=== PATIENT | female | born 1995 | race African-American/Black ===

== ENCOUNTER 2016-10-02 20:50 | Emergency (ER) | payer OTHER ==
[~2016-10-02] VITALS: Ht 160 cm; Wt 48.0 kg
[~2016-10-02 20:50] MED LIST: BENA25TA8 PO; ZOLO50TA PO
[2016-10-02 20:51] VITALS: BP 109/55; PULSE 113; RESP 16; TEMP 98.9; O2SAT 98
--- NOTE | 2016-10-02 21:12 | PD ---
HPI Chief Complaint: Abdominal Pain Time Seen by Provider: 20:57 Travel History International Travel<30 days: No Contact w/Intl Traveler<30days: No Traveled to known affect area: No History of Present Illness HPI 20-year-old female presents emergency Department with very vague symptoms of abdominal pain starting early this morning cramping and diffuse in nature so she was some mild nausea without vomiting or change in bowel habits. She states that this afternoon she stated she started becoming short of breath because of the pain and decided to come in and be seen. She's also been having some chest pain middle of her chest without radiation. Cannot add any descriptors to it. States this is never happened to her before. Denies possibility for , states that she is on her cycle now, denies any fevers extremity pain rash. Denies any blood in the stool. PFSH Past Medical History Anxiety: Yes Depression: Yes Diabetes: No Diminished Hearing: No Headaches: Yes (migraines) Psychiatric: Yes ([facility]) Immunizations Current: Yes Migraines: Yes LMP: 09/05/16 : 0 Para: 0 Miscarriage: 0 : 0 Social History Alcohol Use: Yes (DRINKS ALCOHOL ON OCCASION - 2 times a week 1 beer. ) Tobacco Use: Yes (2 cigs every two weeks. ) Substance Use: Yes Allergies-Medications (Allergen,Severity, Reaction): Coded Allergies: [place] (Unverified Allergy, Unknown, 10/02/16) Apple (Unverified Allergy, Unknown, 10/02/16) [place] (Unverified Allergy, Unknown, 10/02/16) Pear (Unverified Allergy, Unknown, 10/02/16) Plums (Unverified Allergy, Unknown, 10/02/16) Shrimp (Unverified Allergy, Unknown, 10/02/16) Reported Meds & Prescriptions Reported Meds & Active Scripts Active No Active Prescriptions or Reported Medications Review of Systems Except as stated in HPI: all other systems reviewed are Neg Physical Exam Narrative GENERAL: Well-developed, thin but in mild discomfort. SKIN: Focused skin assessment warm/dry. HEAD: Atraumatic. Normocephalic. EYES: Pupils equal and round. No scleral icterus. No injection or drainage. ENT: No nasal bleeding or discharge. Mucous membranes pink and moist. NECK: Trachea midline. No JVD. CARDIOVASCULAR: Regular rate and rhythm. No murmur appreciated. RESPIRATORY: No accessory muscle use. Clear to auscultation. Breath sounds equal bilaterally. GASTROINTESTINAL: Abdomen soft, non-tender, nondistended. Hepatic and splenic margins not palpable. MUSCULOSKELETAL: No obvious deformities. No clubbing. No cyanosis. No edema. NEUROLOGICAL: Awake and alert. No obvious cranial nerve deficits. Motor grossly within normal limits. Normal speech. PSYCHIATRIC: Appropriate mood and affect; insight and judgment normal. Data Data Last Documented VS Vital Signs Date Time Temp Pulse Resp B/P Pulse Ox O2 Delivery O2 Flow Rate FiO2 10/02/16 23:19 88 15 110/67 100 10/02/16 21:43 Room Air 10/02/16 20:51 98.9 Orders Electrocardiogram (10/02/16 21:09) Complete Blood Count With Diff (10/02/16 21:09) Comprehensive Metabolic Panel (10/02/16 21:09) D-Dimer (10/02/16 21:09) Magnesium (Mg) (10/02/16 21:09) Prothrombin Time / Inr (Pt) (10/02/16 21:09) Act Partial Throm Time (Ptt) (10/02/16 21:09) Troponin I (10/02/16 21:09) Ecg Monitoring (10/02/16 21:09) Iv Access Insert/Monitor (10/02/16 21:) Oximetry (10/02/16 21:09) Oxygen Administration (10/02/16 21:09) Sodium Chloride 0.9% Flush (Ns Flush) (10/02/16 21:15) Chest, Pa & Lat (10/02/16 21:09) Ed Urine Pregnancytest Poc (10/02/16 21:09) Ondansetron Inj (Zofran Inj) (10/02/16 21:15) Sodium Chlor 0.9% 1000 Ml Inj (Ns 1000 M (10/02/16 21:15) Ketorolac Inj (Toradol Inj) (10/02/16 21:45) Labs Laboratory Tests Test 10/02/16 21:35 White Blood Count 8.1 TH/MM3 Red Blood Count 4.59 MIL/MM3 Hemoglobin 14.0 GM/DL Hematocrit 41.8 % Mean Corpuscular Volume 91.2 FL Mean Corpuscular Hemoglobin 30.5 PG Mean Corpuscular Hemoglobin 33.4 % Concent Red Cell Distribution Width 12.7 % Platelet Count 268 TH/MM3 Mean Platelet Volume 8.8 FL Neutrophils (%) (Auto) 81.8 % Lymphocytes (%) (Auto) 5.9 % Monocytes (%) (Auto) 11.9 % Eosinophils (%) (Auto) 0.1 % Basophils (%) (Auto) 0.3 % Neutrophils # (Auto) 6.6 TH/MM3 Lymphocytes # (Auto) 0.5 TH/MM3 Monocytes # (Auto) 1.0 TH/MM3 Eosinophils # (Auto) 0.0 TH/MM3 Basophils # (Auto) 0.0 TH/MM3 CBC Comment AUTO DIFF Differential Comment AUTO DIFF CONFIRMED Platelet Estimate NORMAL Platelet Morphology Comment NORMAL Red Cell Morphology Comment NORMAL Prothrombin Time 10.5 SEC Prothromb Time International 1.0 RATIO Ratio Activated Partial 27.6 SEC Thromboplast Time D-Dimer Quantitative (PE/DVT) LESS THAN 0.19 MG/L FEU Sodium Level 136 MEQ/L Potassium Level 3.9 MEQ/L Chloride Level 103 MEQ/L Carbon Dioxide Level 22.3 MEQ/L Anion Gap 11 MEQ/L Blood Urea Nitrogen 12 MG/DL Creatinine 1.10 MG/DL Estimat Glomerular Filtration 75 ML/MIN Rate Random Glucose 81 MG/DL Calcium Level 9.4 MG/DL Magnesium Level 2.2 MG/DL Total Bilirubin 0.7 MG/DL Aspartate Amino Transf 20 U/L (AST/SGOT) Alanine Aminotransferase 20 U/L (ALT/SGPT) Alkaline Phosphatase 51 U/L Troponin I LESS THAN 0.02 NG/ML Total Protein 8.1 GM/DL Albumin 4.4 GM/DL MDM Medical Decision Making Medical Screen Exam Complete: Yes Emergency Medical Condition: Yes Interpretation(s) EKG shows normal sinus rhythm normal axis and normal R-wave progression. No concerning ST segment changes. Intervals within normal limits. This normal EKG. Differential Diagnosis Abdominal pain, chest pain, PE, ACS unlikely, acute abdomen unlikely, . Narrative Course test negative at the bedside, patient was given Toradol and in complete relief of her symptoms. Repeat examination her abdomen is benign, chest x-ray negative, EKG negative, basic labs: CBC CMP and troponin and d- dimer are negative. Discussed with patient that the etiology behind her symptoms has not established and recommended following up with primary care physician and discussed return to ED criteria. She was also referred to the [place] [facility]. Diagnosis Primary Impression: Abdominal pain Qualified Code: R10.84 - Generalized abdominal pain Additional Impression: SOB (shortness of breath) Referrals: [facility] Additional Instructions: Drink plenty of fluids, stay bland on your diet, follow-up with your primary care physician or the [place] [facility] for a checkup. Med/Other Pt SpecificInfo: Prescription(s) given Scripts No Active Prescriptions or Reported Meds Disposition: 01 DISCHARGE HOME Condition: Stable Charles Schaeffer MD Oct 02, 2016 21:12
[2016-10-02] MEDS ORDERED: ONDANSETRON HCL 4 MG/2 ML VIAL IV PUSH ONE (21:15)
[2016-10-02] MEDS ORDERED: SODIUM CHLOR 0.9% 1000 ML INJ 1,000 ML IV ONE (21:15)
[2016-10-02] MEDS ORDERED: SODIUM CHLORIDE 0.9% FLUSH 10 ML FLUSH IVF PRN (21:15)
[2016-10-02 21:43] VITALS: BP 104/67; PULSE 88; RESP 15; O2SAT 100
[2016-10-02] MEDS ORDERED: KETOROLAC TROMETHAMINE 30 MG/ML (IVP) VIAL IV PUSH ONE (21:45)
--- NOTE | 2016-10-02 21:47 | RADRPT ---
EXAM DATE/TIME: 10/02/2016 21:29 [facility] COMPARISON: RIBS RIGHT(W PA CXR MIN 3VWS), January 26, 2016, 0:30. INDICATIONS : Chest pain and whole body pain. MEDICAL HISTORY : None. SURGICAL HISTORY : None. ENCOUNTER: Initial ACUITY: 1 day PAIN SCORE: 5/10 LOCATION: Bilateral chest FINDINGS: PA and lateral views of the chest demonstrate a normal-sized cardiac silhouette. There is no effusion , consolidation, or pneumothorax. The bones and soft tissues demonstrate no acute abnormality. CONCLUSION: Normal chest x-ray. Tico Santoro MD on October 02, 2016 at 21:44 Board Certified Radiologist. This report was verified electronically.
[2016-10-02 22:02] LABS: AUTOMATED NEUTROPHIL # 6.6 TH/MM3 (1.8-7.7); BASOPHIL % 0.3 % (0.0-2.0); EOSINOPHIL % 0.1 % (0.0-4.0); HEMATOCRIT 41.8 % (35.0-46.0); LYMPH % 5.9 % (9.0-44.0); LYMPHOCYTE # 0.5 TH/MM3 (1.0-4.8); MEAN CELL VOLUME 91.2 FL (80.0-100.0); MEAN CORPUSCULAR HEMOGLOBIN 30.5 PG (27.0-34.0); MEAN CORPUSCULAR HGB CONC 33.4 % (32.0-36.0); MONO % 11.9 % (0.0-8.0); NEUT % 81.8 % (16.0-70.0); PLATELET COUNT 268 TH/MM3 (150-450); RED BLOOD COUNT 4.59 MIL/MM3 (4.00-5.30); RED CELL DISTRIBUTION WIDTH 12.7 % (11.6-17.2); WHITE BLOOD COUNT 8.1 TH/MM3 (4.0-11.0)
[2016-10-02 22:05] LABS: HEMO FLAGS AUTO DIFF
[2016-10-02 22:10] LABS: ANION GAP 11 MEQ/L (5-15); AST (GOT) 20 U/L (15-37); BICARBONATE 22.3 MEQ/L (21.0-32.0); BLOOD UREA NITROGEN 12 MG/DL (7-18); CHLORIDE 103 MEQ/L (98-107); GLOMERULAR FILTRATION RATE 75 ML/MIN (>89); MAGNESIUM 2.2 MG/DL (1.5-2.5); POTASSIUM 3.9 MEQ/L (3.5-5.1); SODIUM (NA) 136 MEQ/L (136-145)
[2016-10-02 22:12] LABS: ALT (GPT) 20 U/L (10-53)
[2016-10-02 22:15] LABS: ALKALINE PHOSPHATASE 51 U/L (45-117); TOTAL BILIRUBIN ADULT 0.7 MG/DL (0.2-1.0)
[2016-10-02 22:21] LABS: APTT (PATIENT) 27.6 SEC (24.3-30.1); PROTHROMBIN TIME - PATIENT 10.5 SEC (9.8-11.6)
[2016-10-02 22:33] LABS: PLATELET ESTIMATE SMEAR NORMAL (NORMAL); PLATELET MORPHOLOGY NORMAL (NORMAL); SCAN/DIFF AUTO DIFF CONFIRMED
[2016-10-02 23:19] VITALS: BP 110/67
--- NOTE | 2016-10-03 14:20 | EKG ---
Date Performed: 10/02/2016 Time Performed: 21:52:59 PTAGE: 20 years EKG: Sinus rhythm NORMAL ECG NO PREVIOUS TRACING DOCTOR: Luis Cabral Interpretating Date/Time 10/03/2016 14:15:58
== END 2016-10-02 23:34 | disposition home or self-care (01) ==
LOC: NEPD 20:50
DX: R10.84 Generalized abdominal pain (principal); R06.02 Shortness of breath; R11.0 Nausea; R07.9 Chest pain, unspecified; F41.9 Anxiety disorder, unspecified; F32.9 Major depressive disorder, single episode, unspecified; F17.210 Nicotine dependence, cigarettes, uncomplicated
CPT/HCPCS: 71020; 80053; 83735; 84484; 84703; 85025; 85379; 85610; 85730; 93005; 96374; 96375; 99285; J1885; J2405; J7030

== ENCOUNTER 2016-11-21 16:52 | Emergency (ER) | payer MEDICAID, OTHER ==
[~2016-11-21] VITALS: Ht 160 cm; Wt 42.0 kg
[2016-11-21 16:54] VITALS: BP 108/65; PULSE 88; RESP 18; TEMP 98.5; O2SAT 100
--- NOTE | 2016-11-21 17:22 | PD ---
Physical Exam Date Seen by Provider: Nov 21, 2016 Time Seen by Provider: 17:19 Narrative 20 y/o female who is 6 weeks here with nausea and vomiting. States cant keep anything down. Was scheduled to see Doctor this am, but couldnt go due to symptoms. Patient reports Syncope this am. No Hit on head. Patient has RLQ Tenderness today. pain Intermittent and Sharp. 09/24. Vital signs reviewed. Patient stable. Awaiting Bed placement. Data Data Last Documented VS Vital Signs Date Time Temp Pulse Resp B/P Pulse Ox O2 Delivery O2 Flow Rate FiO2 11/21/16 16:54 98.5 88 18 108/65 100 MDM Medical Record Reviewed: Yes Supervised Visit with TREVER: Yes Scripts No Active Prescriptions or Reported Meds Condition: Stable Aly Terrazas Nov 21, 2016 17:22
[2016-11-21 19:04] LABS: BASOPHIL % 0.3 % (0.0-2.0); EOSINOPHIL # 0.1 TH/MM3 (0-0.4); EOSINOPHIL % 0.7 % (0.0-4.0); HEMATOCRIT 36.7 % (35.0-46.0); HEMO FLAGS DIFF FINAL; LYMPH % 18.5 % (9.0-44.0); LYMPHOCYTE # 1.6 TH/MM3 (1.0-4.8); MEAN CELL VOLUME 92.9 FL (80.0-100.0); MEAN CORPUSCULAR HEMOGLOBIN 31.2 PG (27.0-34.0); MEAN CORPUSCULAR HGB CONC 33.6 % (32.0-36.0); MONO % 11.7 % (0.0-8.0); NEUT % 68.8 % (16.0-70.0); PLATELET COUNT 344 TH/MM3 (150-450); RED BLOOD COUNT 3.95 MIL/MM3 (4.00-5.30); RED CELL DISTRIBUTION WIDTH 12.7 % (11.6-17.2); WHITE BLOOD COUNT 8.6 TH/MM3 (4.0-11.0)
[2016-11-21 19:14] LABS: ALT (GPT) 27 U/L (10-53); ANION GAP 10 MEQ/L (5-15); AST (GOT) 20 U/L (15-37); BICARBONATE 24.3 MEQ/L (21.0-32.0); BLOOD UREA NITROGEN 10 MG/DL (7-18); CHLORIDE 102 MEQ/L (98-107); GLOMERULAR FILTRATION RATE 131 ML/MIN (>89); POTASSIUM 3.8 MEQ/L (3.5-5.1); SODIUM (NA) 136 MEQ/L (136-145)
[2016-11-21 20:09] LABS: ALKALINE PHOSPHATASE 49 U/L (45-117); BETA HCG QUANT 41857 MIU/ML (0-5); TOTAL BILIRUBIN ADULT 0.4 MG/DL (0.2-1.0)
[2016-11-21 21:27] VITALS: BP 107/76; PULSE 82; RESP 18; TEMP 98.5; O2SAT 100
[2016-11-21] MEDS ORDERED: SODIUM CHLOR 0.9% 1000 ML INJ 1,000 ML IV ONE ×2 (21:45)
[2016-11-21] MEDS ORDERED: ONDANSETRON HCL 4 MG/2 ML VIAL IV PUSH ONE (21:45)
[2016-11-21 23:11] LABS: BACTERIA, URINE RARE /hpf; BLOOD, URINE NEG (NEG); CALCIUM OXALATE CRYSTALS,URINE RARE /hpf; GLUCOSE,URINE NEG (NEG); KETONE, URINE 150 mg/dL (NEG); MUCUS URINE MANY /lpf (OCC); NITRITE,URINE NEG (NEG); RENAL EPITHELIAL CELLS <1 /hpf; SQUAMOUS EPITHELIAL CELL URINE 8 /hpf (0-5); TRANSITIONAL EPI CELLS, URINE <1 /hpf; URINE COLOR YELLOW (YELLW/STRAW)
[2016-11-21 23:13] LABS: COMMENT (UR) CULT NOT INDICATED; CULTURE IF INDICATED CULT NOT INDICATED
[2016-11-21] MEDS ORDERED: ZOFR4TAB3 SL (23:41)
--- NOTE | 2016-11-21 23:41 | PD ---
HPI Chief Complaint: Related Problem Time Seen by Provider: 21:23 Travel History International Travel<30 days: No Contact w/Intl Traveler<30days: No Traveled to known affect area: No History of Present Illness HPI 20 year-old woman presents emergency Department with nausea and vomiting for the past 3 days. She presently 6 weeks . Denies any vaginal bleeding or discharge. She is a little bit of cramping lower abdomen on the left side. She's not been before. She denies any other new or worsening symptoms. No other complaints. History Past Medical History Medical History: Denies Significant Hx : 0 Para: 0 Social History Alcohol Use: Yes (OCCASIONALLY) Tobacco Use: Yes Allergies-Medications (Allergen,Severity, Reaction): Coded Allergies: Sertraline (Verified Allergy, Severe, 11/21/16) DIFFICULTY BREATHING [place] (Verified Allergy, Unknown, 11/21/16) Apple (Verified Allergy, Unknown, 11/21/16) [place] (Verified Allergy, Unknown, 11/21/16) Pear (Verified Allergy, Unknown, 11/21/16) Plums (Verified Allergy, Unknown, 11/21/16) Shrimp (Verified Allergy, Unknown, 11/21/16) Reported Meds & Prescriptions Reported Meds & Active Scripts Active No Active Prescriptions or Reported Medications Review of Systems Except as stated in HPI: all other systems reviewed are Neg Physical Exam Narrative GENERAL: Well-appearing 18 year-old woman, no acute distress. SKIN: Focused skin assessment warm/dry. HEAD: Atraumatic. Normocephalic. CARDIOVASCULAR: Regular rate and rhythm. No murmur appreciated. RESPIRATORY: No accessory muscle use. Clear to auscultation. Breath sounds equal bilaterally. GASTROINTESTINAL: Abdomen soft, non-tender, nondistended. Hepatic and splenic margins not palpable. MUSCULOSKELETAL: No obvious deformities. No edema. NEUROLOGICAL: Awake and alert. No obvious cranial nerve deficits. Motor grossly within normal limits. Normal speech. PSYCHIATRIC: Appropriate mood and affect; insight and judgment normal. Data Data Last Documented VS Vital Signs Date Time Temp Pulse Resp B/P Pulse Ox O2 Delivery O2 Flow Rate FiO2 11/21/16 21:27 98.5 82 18 107/76 100 Room Air Orders Complete Blood Count With Diff (11/21/16 17:24) Comprehensive Metabolic Panel (11/21/16 17:24) Urinalysis - C+S If Indicated (11/21/16 17:24) Beta Hcg (Quant/Titer) (11/21/16 17:24) Iv Access Insert/Monitor (11/21/16 21:31) Ed Poc Ultrasound (11/21/16 ) Ondansetron Inj (Zofran Inj) (11/21/16 21:45) Sodium Chlor 0.9% 1000 Ml Inj (Ns 1000 M (11/21/16 21:45) Sodium Chlor 0.9% 1000 Ml Inj (Ns 1000 M (11/21/16 21:45) Labs Laboratory Tests Test 11/21/16 11/21/16 17:55 22:25 White Blood Count 8.6 TH/MM3 Red Blood Count 3.95 MIL/MM3 Hemoglobin 12.3 GM/DL Hematocrit 36.7 % Mean Corpuscular Volume 92.9 FL Mean Corpuscular Hemoglobin 31.2 PG Mean Corpuscular Hemoglobin 33.6 % Concent Red Cell Distribution Width 12.7 % Platelet Count 344 TH/MM3 Mean Platelet Volume 8.2 FL Neutrophils (%) (Auto) 68.8 % Lymphocytes (%) (Auto) 18.5 % Monocytes (%) (Auto) 11.7 % Eosinophils (%) (Auto) 0.7 % Basophils (%) (Auto) 0.3 % Neutrophils # (Auto) 6.0 TH/MM3 Lymphocytes # (Auto) 1.6 TH/MM3 Monocytes # (Auto) 1.0 TH/MM3 Eosinophils # (Auto) 0.1 TH/MM3 Basophils # (Auto) 0.0 TH/MM3 CBC Comment DIFF FINAL Differential Comment Sodium Level 136 MEQ/L Potassium Level 3.8 MEQ/L Chloride Level 102 MEQ/L Carbon Dioxide Level 24.3 MEQ/L Anion Gap 10 MEQ/L Blood Urea Nitrogen 10 MG/DL Creatinine 0.68 MG/DL Estimat Glomerular Filtration 131 ML/MIN Rate Random Glucose 81 MG/DL Calcium Level 9.4 MG/DL Total Bilirubin 0.4 MG/DL Aspartate Amino Transf 20 U/L (AST/SGOT) Alanine Aminotransferase 27 U/L (ALT/SGPT) Alkaline Phosphatase 49 U/L Total Protein 8.3 GM/DL Albumin 4.4 GM/DL Human Chorionic Gonadotropin, 45902 MIU/ML Quant Urine Color YELLOW Urine Turbidity HAZY Urine pH 6.0 Urine Specific [place] 1.024 Urine Protein TRACE mg/dL Urine Glucose (UA) NEG mg/dL Urine Ketones 150 mg/dL Urine Occult Blood NEG Urine Nitrite NEG Urine Bilirubin NEG Urine Urobilinogen LESS THAN 2.0 MG/DL Urine Leukocyte Esterase SMALL Urine RBC 3 /hpf Urine WBC 6 /hpf Urine Squamous Epithelial 8 /hpf Cells Urine Transitional Epithelial <1 /hpf Cells Urine Renal Epithelial Cells <1 /hpf Urine Calcium Oxalate Crystals RARE /hpf Urine Bacteria RARE /hpf Urine Mucus MANY /lpf Microscopic Urinalysis Comment CULT NOT INDICATED MDM Medical Decision Making Medical Screen Exam Complete: Yes Emergency Medical Condition: Yes Interpretation(s) CBC unremarkable BMP is unremarkable HCG 42,000 UA, trace pyuria. Differential Diagnosis Hyperemesis, UTI, dehydration, other Narrative Course 20 year-old woman, , early , CONFIRMS IUP, HYPEREMESIS, LOOKS WELL, RECOMMEND SUPPORTIVE TREATMENT. Procedures Procedure Narrative Point of care ultrasound: Focus transabdominal ultrasounds perform immediate the bedside for the purpose of evaluating for IUP. Early evidence of IUP was seen. Diagnosis Primary Impression: Nausea and vomiting Additional Impression: Patient Instructions: General Instructions Departure Forms: Tests/Procedures Med/Other Pt SpecificInfo: Prescription(s) given Scripts Ondansetron Odt (Zofran Odt)4 Mg Tab4 Mg SL Q8HR PRN (Nausea/Vomiting) #15 TAB May substitute non-ODT form. Prov:Javi Argueta MD 11/21/16 Disposition: 01 DISCHARGE HOME Condition: Stable Javi Argueta MD Nov 21, 2016 23:41
== END 2016-11-21 23:51 | disposition home or self-care (01) ==
LOC: NEPD 16:52
DX: O21.9 Vomiting of pregnancy, unspecified (principal); O26.891 Other specified pregnancy related conditions, first trimester; R10.30 Lower abdominal pain, unspecified; Z3A.01 Less than 8 weeks gestation of pregnancy; Z72.0 Tobacco use; Z34.91 Encounter for supervision of normal pregnancy, unspecified, first trimester
CPT/HCPCS: 80053; 81001; 84702; 85025; 96361; 96374; 99285; J2405; J7030

== ENCOUNTER 2017-10-02 08:57 | Emergency (ER) | payer MEDICAID ==
[~2017-10-02] VITALS: Ht 160 cm; Wt 45.0 kg
[~2017-10-02 08:57] MED LIST changes: -BENA25TA8 PO; +ZOFR4TAB3 SL; -ZOLO50TA PO
[2017-10-02 09:00] VITALS: BP 109/65; PULSE 79; RESP 16; TEMP 97.9; O2SAT 99
[2017-10-02 10:15] LABS: AUTOMATED NEUTROPHIL # 2.1 TH/MM3 (1.8-7.7); BASOPHIL % 0.5 % (0.0-2.0); EOSINOPHIL # 0.1 TH/MM3 (0-0.4); EOSINOPHIL % 1.8 % (0.0-4.0); HEMATOCRIT 34.6 % (35.0-46.0); HEMOGLOBIN 11.4 GM/DL (11.6-15.3); LYMPH % 35.6 % (9.0-44.0); LYMPHOCYTE # 1.4 TH/MM3 (1.0-4.8); MEAN CELL VOLUME 88.2 FL (80.0-100.0); MEAN CORPUSCULAR HEMOGLOBIN 28.9 PG (27.0-34.0); MEAN CORPUSCULAR HGB CONC 32.8 % (32.0-36.0); MEAN PLATELET VOLUME 7.9 FL (7.0-11.0); MONO % 9.2 % (0.0-8.0); MONOCYTE # 0.4 TH/MM3 (0-0.9); NEUT % 52.9 % (16.0-70.0); PLATELET COUNT 282 TH/MM3 (150-450); RED BLOOD COUNT 3.93 MIL/MM3 (4.00-5.30); RED CELL DISTRIBUTION WIDTH 13.5 % (11.6-17.2)
[2017-10-02 10:24] LABS: ALBUMIN 3.8 GM/DL (3.4-5.0); AST (GOT) 18 U/L (15-37); BICARBONATE 21.5 MEQ/L (21.0-32.0); BLOOD UREA NITROGEN 11 MG/DL (7-18); CALCIUM 9.1 MG/DL (8.5-10.1); CHLORIDE 112 MEQ/L (98-107); CREATININE 0.98 MG/DL (0.50-1.00); GLOMERULAR FILTRATION RATE 85 ML/MIN (>89); GLUCOSE,RANDOM 76 MG/DL (74-106); SODIUM (NA) 142 MEQ/L (136-145)
[2017-10-02 10:25] LABS: ALT (GPT) 18 U/L (10-53)
[2017-10-02 10:35] LABS: ALKALINE PHOSPHATASE 53 U/L (45-117); TOTAL BILIRUBIN ADULT 0.5 MG/DL (0.2-1.0); TOTAL PROTEIN 7.1 GM/DL (6.4-8.2)
--- NOTE | 2017-10-02 11:19 | PD ---
HPI Chief Complaint: Psychiatric Symptoms Time Seen by Provider: 09:10 Travel History International Travel<30 days: No Contact w/Intl Traveler<30days: No Traveled to known affect area: No History of Present Illness HPI 21-year-old female came to the emergency room with history of depression. Patient says that she has not been feeling too good about herself since she has had her baby. She is 3 months and has been having difficulty sleeping. Patient says after she had the baby 10 days later they had to take her back to the OR to remove retained products of conception. Patient says since then she has been getting nightmares that she goes for the procedure and is . Because of the use she is afraid to sleep. She was given Ambien by her primary care but the Ambien is not helping her to sleep. Lately she has not slept in days and has been having visual hallucinations. Vital signs are stable. Currently she is awake and answering questions appropriately. Patient says that she has been diagnosed with depression in the past. She is not on any medications. 2 years ago when she was in this hospital as a [place] act for depression she was given medications to go home on but she says that the medication did not really suit her very well and she stopped taking it. She feels like she is better not being around. She has had fleeting thoughts of killing herself but knows that she would not do something like it because she does not have the courage to do it. Patient denies any alcohol or drug abuse. She says she smokes cigarettes occasionally. [facility] Past Medical History Narrative Medical List of her past medical, surgical, social and family history is reviewed from the nursing note. Anxiety: Yes Depression: Yes Diabetes: No Diminished Hearing: No Headaches: Yes (migraines) Psychiatric: Yes ([facility]) Immunizations Current: Yes Migraines: Yes ?: Not : 0 Para: 0 Miscarriage: 0 : 0 Social History Alcohol Use: Yes (OCCASIONALLY) Tobacco Use: Yes Substance Use: Yes (MARIJUANA) Allergies-Medications (Allergen,Severity, Reaction): Coded Allergies: sertraline (Unverified Allergy, Severe, 11/29/16) DIFFICULTY BREATHING [place] (Unverified Allergy, Unknown, 11/29/16) apple (Unverified Allergy, Unknown, 11/29/16) peach (Unverified Allergy, Unknown, 11/29/16) pear (Unverified Allergy, Unknown, 11/29/16) plum (Unverified Allergy, Unknown, 11/29/16) shrimp (Unverified Allergy, Unknown, 11/29/16) Comments List of her allergies reviewed from the nursing note Reported Meds & Prescriptions Reported Meds & Active Scripts Active Zofran Odt (Ondansetron Odt) 4 Mg Tab 4 Mg SL Q8HR PRN May substitute non-ODT form. Narrative Medication List of her home medications reviewed from the nursing note Review of Systems Except as stated in HPI: all other systems reviewed are Neg Psychiatric: Positive: Depression Physical Exam Narrative GENERAL: Awake, alert, no obvious distress SKIN: Focused skin assessment warm/dry. HEAD: Atraumatic. Normocephalic. EYES: Pupils equal and round. No scleral icterus. No injection or drainage. ENT: No nasal bleeding or discharge. Mucous membranes pink and moist. NECK: Trachea midline. No JVD. CARDIOVASCULAR: Regular rate and rhythm. No murmur appreciated. RESPIRATORY: No accessory muscle use. Clear to auscultation. Breath sounds equal bilaterally. GASTROINTESTINAL: Abdomen soft, non-tender, nondistended. Hepatic and splenic margins not palpable. MUSCULOSKELETAL: No obvious deformities. No clubbing. No cyanosis. No edema. NEUROLOGICAL: Awake and alert. No obvious cranial nerve deficits. Motor grossly within normal limits. Normal speech. PSYCHIATRIC: Appropriate mood and affect; insight and judgment normal. Data Data Last Documented VS Vital Signs Date Time Temp Pulse Resp B/P (MAP) Pulse Ox O2 Delivery O2 Flow Rate FiO2 10/02/17 20:11 10/02/17 15:59 98.2 96 20 98 Orders Orders Complete Blood Count With Diff (10/02/17 09:24) Comprehensive Metabolic Panel (10/02/17 09:24) Thyroid Stimulating Hormone (10/02/17 09:24) Ed Urine Pregnancytest Poc (10/02/17 09:24) Psych Screen (10/02/17 09:24) Drug Screen, Random Urine (10/02/17 09:24) Diet Regular Basic (10/02/17 Dinner) Labs Laboratory Tests Test 10/02/17 09:35 10/02/17 09:40 White Blood Count 4.0 TH/MM3 Red Blood Count 3.93 MIL/MM3 Hemoglobin 11.4 GM/DL Hematocrit 34.6 % Mean Corpuscular Volume 88.2 FL Mean Corpuscular Hemoglobin 28.9 PG Mean Corpuscular Hemoglobin Concent 32.8 % Red Cell Distribution Width 13.5 % Platelet Count 282 TH/MM3 Mean Platelet Volume 7.9 FL Neutrophils (%) (Auto) 52.9 % Lymphocytes (%) (Auto) 35.6 % Monocytes (%) (Auto) 9.2 % Eosinophils (%) (Auto) 1.8 % Basophils (%) (Auto) 0.5 % Neutrophils # (Auto) 2.1 TH/MM3 Lymphocytes # (Auto) 1.4 TH/MM3 Monocytes # (Auto) 0.4 TH/MM3 Eosinophils # (Auto) 0.1 TH/MM3 Basophils # (Auto) 0.0 TH/MM3 CBC Comment DIFF FINAL Differential Comment Blood Urea Nitrogen 11 MG/DL Creatinine 0.98 MG/DL Random Glucose 76 MG/DL Total Protein 7.1 GM/DL Albumin 3.8 GM/DL Calcium Level 9.1 MG/DL Alkaline Phosphatase 53 U/L Aspartate Amino Transf (AST/SGOT) 18 U/L Alanine Aminotransferase (ALT/SGPT) 18 U/L Total Bilirubin 0.5 MG/DL Sodium Level 142 MEQ/L Potassium Level 3.9 MEQ/L Chloride Level 112 MEQ/L Carbon Dioxide Level 21.5 MEQ/L Anion Gap 9 MEQ/L Estimat Glomerular Filtration Rate 85 ML/MIN Thyroid Stimulating Hormone 3rd Gen 0.605 uIU/ML Urine Opiates Screen NEG Urine Barbiturates Screen NEG Urine Amphetamines Screen NEG Urine Benzodiazepines Screen NEG Urine Cocaine Screen NEG Urine Cannabinoids Screen POS [facility] Medical Decision Making Medical Screen Exam Complete: Yes Emergency Medical Condition: Yes Medical Record Reviewed: Yes Differential Diagnosis Major depression, blues Narrative Course 11:32 AM patient has been medically cleared. Awaiting for a psych screen. Procedures EKG Prior to Arrival: Christiane Cuevas MD Oct 02, 2017 11:19
[2017-10-02 15:59] VITALS: BP 103/60; PULSE 96; RESP 20; TEMP 98.2; O2SAT 98
== END 2017-10-02 20:30 | disposition home or self-care (01) ==
LOC: NEPD 08:57 → NEPJ 20:30
DX: Z00.8 Encounter for other general examination (principal); F32.9 Major depressive disorder, single episode, unspecified; F41.9 Anxiety disorder, unspecified; Z72.0 Tobacco use; Z88.8 Allergy status to other drugs, medicaments and biological substances
CPT/HCPCS: 80053; 80307; 84443; 84703; 85025; 99283

== ENCOUNTER 2018-06-08 08:28 | Inpatient (IN) ==
[2018-06-08] MEDS ORDERED: Sod Chloride 0.9% Inj 1,000 ML IV.CONT PRN (09:00)
[2018-06-08] MEDS ORDERED: Citric Acid/Sodium Citrate Liq 30 ML UDC PO SCH (09:00)
[2018-06-08] MEDS ORDERED: Oxytocin 30 Units/500ml Premix 30 UNITS/500 ML BAG IV.SIG ONE (09:00)
[2018-06-08] MEDS ORDERED: Sodium Chlor 0.9% Inj 500 ML IV.SIG PRN (09:00)
[2018-06-08] MEDS ORDERED: Naloxone Inj 0.4 MG/ML Vial IV.PUSH PRN ×2 (09:00→15:42)
[2018-06-08] MEDS ORDERED: fentaNYL Citrate Inj 100 MCG/2 ML Ampul IV.PUSH PRN ×2 (09:00)
[2018-06-08] MEDS ORDERED: Oxytocin 30 Units/500ml Premix 30 UNITS/500 ML BAG IV.SIG PRN (09:01)
--- NOTE | 2018-06-08 09:04 | P.HPOB ---
History of Present Illness Primary Care Physician: No Primary Care Physician Chief Complaint: induction History of Present Illness: 22-year-old female at 39 weeks (via US @28/5 weeks, WILLIE 06/15/18) presenting for labor induction. Is a [facility] patient. Patient denies any vaginal bleeding or decreased movement. She states that she is having intermittent contractions. She denies any issues with urination, shortness of breath, or chest pain. She states this has been uncomplicated. She is taking PNV. GBS negative. No hx STDs. OB hx: When asked about past medical history she states she had a seizure when she was 7 weeks but was unaware of the at that time. Her first ended in a miscarriage and D&C. In her second she had preeclampsia and was induced at 37 weeks and had a vaginal delivery. PMH: seizure 2018 depression - taking zoloft 50 mg daily SurgH: D & C allergies: food allergies Social: no alcohol, drug or tobacco use; hx of THC+ on urine from previous visits - Inpatient Certification I certify that the inpatient services were ordered in accordance with Medicare regulations governing the order. This includes certification that hospital inpatient services are reasonable and necessary and in the case of services not specified as inpatient-only under 42 CFR 419.22(n), that they are appropriately provided as inpatient services in accordance to with the 2-midnight benchmark under 43 CFR 412.3(e) Estimated Total Length of Stay (Days): 2 Plans for Post Hospital Care: Home Review of Systems All other systems reviewed negative except as stated in HPI [facility] - History History Provided By: Patient - Medical History Medical History: Medical History (Last Reviewed 03/28/18 @ 12:50 by DINO Mcneal) Iron deficiency anemia Preeclampsia - Surgical History Surgical History: Surgical History (Last Reviewed 03/28/18 @ 12:50 by DINO Mcneal) H/O dilation and curettage - Tobacco History Second Hand Smoke Exposure: No Smoking Status: Never smoker - Alcohol History How Often Do You Have a Drink Containing Alcohol: Never - Substance Use History Substance History: No History of Abuse - Travel History Recent Travel in the [place] Within the Last 8 Weeks: No Recent Travel Out of the Country Within the Last 8 Weeks: No - Immunization History Hx Influenza Vaccine This Season: No Medications and Allergies Active Medications: Active Medications Citric Acid/Sodium Citrate (Sodium Citrate/Citric Acid Liq) 30 ml PO [employer] [facility] Stop: 06/12/18 08:59 Fentanyl Citrate (Fentanyl Inj) 100 mcg IV.PUSH Q1H PRN PRN Reason: PAIN SCALE 6 TO 10 Fentanyl Citrate (Fentanyl Inj) 50 mcg IV.PUSH Q1H PRN PRN Reason: Pain Scale 3 - 5 Lactated Ringer's (Lr 1000 Ml Inj) 1,000 mls @ 125 mls/hr IV.CONT .Q8H [facility] Lactated Ringer's (Lr 1000 Ml Inj) 1,000 mls @ 3,000 mls/hr IV.SIG UNSCH PRN PRN Reason: compromise or epidural Sodium Chloride (Ns Inj) 1,000 mls @ 100 mls/hr IV.CONT .Q10H PRN PRN Reason: SEE LABEL COMMENTS Oxytocin (Pitocin 30 Units/Ns 500 Ml Premix) 30 units in 500 mls @ 999 mls/hr IV.SIG BOLUS ONE Stop: 06/08/18 09:30 Sodium Chloride (Ns Inj) 500 mls @ 1,000 mls/hr IV.SIG UNSCH PRN PRN Reason: SEE LABEL COMMENTS Oxytocin (Pitocin 30 Units/Ns 500 Ml Premix) 30 units in 500 mls @ 2 mls/hr IV.SIG TITRATE PRN; Protocol PRN Reason: For induction of labor Lidocaine HCl (Xylocaine 1% Inj) 0.1 ml I-DERMAL PRN PRN PRN Reason: For IV start Stop: 06/11/18 08:59 Lidocaine HCl (Xylocaine 1% Inj) 10 ml INFILTRATN PRN PRN PRN Reason: For episiotomy repair Stop: 06/10/18 08:59 Mineral Oil (Muri-Lube Oil) 10 ml TOPICAL PRN PRN PRN Reason: PRN perineal massage Naloxone HCl (Narcan Inj) 0.1 mg IV.PUSH Q2M PRN PRN Reason: for opiate reversal Allergies Allergy/AdvReac Type Severity Reaction Status Date / Time almond Allergy Unknown Hives Verified 06/08/18 08:43 apple Allergy Unknown Hives Verified 06/08/18 08:43 peach Allergy Unknown Hives Verified 06/08/18 08:43 pear Allergy Unknown Hives Verified 06/08/18 08:43 plum Allergy Unknown Hives Verified 06/08/18 08:43 shrimp Allergy Unknown Hives Verified 06/08/18 08:43 Home Medications Medication Instructions Recorded Confirmed Type vit,[id number] 1 tab PO DAILY 03/28/18 06/08/18 History [Prenatabs FA] sertraline [Zoloft] 50 mg PO DAILY 05/24/18 06/08/18 History Exam Vital signs: Intake & Output 06/07/18 06/08/18 06/08/18 18:59 06:59 18:59 Weight 61.235 kg Other: Weight On Admission 61.235 kg Narrative: GENERAL: Well-nourished, well-developed patient. SKIN: Warm and dry. HEAD: Normocephalic and atraumatic. EYES: No scleral icterus. No injection or drainage. ENT: No nasal drainage noted. Mucous membranes pink. Airway patent. NECK: Supple, trachea midline. No JVD. CARDIOVASCULAR: Regular rate and rhythm without murmurs, gallops, or rubs. RESPIRATORY: Breath sounds equal bilaterally. No accessory muscle use. BREASTS: Bilateral exam showed no masses , no retractions, no nipple discharge. ABDOMEN/GI: Abdomen soft, non-tender, bowel sounds present, no rebound, no guarding Gravid to [-] weeks size Fundal Height: [-] GENITOURINARY: External Genitalia: intact and normal in appearance Cervix: [-] Dilatation: 3 Effacement: 40 Station: -2 Presentation: vertex Membranes: [intact] Uterine Contractions: [none] FHT's: Category: 1 Baseline: 130 Reactive: yes Variability: mod Decels: no EXTREMITIES: No cyanosis or edema. BACK: Nontender without obvious deformity. No CVA tenderness. NEUROLOGICAL: Awake and alert. Motor and sensory grossly within normal limits. Five out of 5 muscle strength in all muscle groups. Normal speech. Results - Labs CBC & Chem 7: 06/08/18 09:15 Caprini VTE Risk Assessment Caprini VTE Risk Assessment: No/Low Risk (score <= 1) Caprini Risk Assessment Model: Point Value = 1 Point Value = 2 Point Value = 3 Point Value = 5 Age 41-60 Minor surgery BMI > 25 kg/m2 Swollen legs Varicose veins or History of unexplained or recurrent spontaneous Oral contraceptives or hormone replacement Sepsis (< 1 month) Serious lung disease, including pneumonia (< 1 month) Abnormal pulmonary function Acute myocardial infarction Congestive heart failure (< 1 month) History of inflammatory bowel disease Medical patient at bed rest Age 61-74 Arthroscopic surgery Major open surgery (> 45 min) Laparoscopic surgery (> 45 min) Malignancy Confined to bed (> 72 hours) Immobilizing plaster cast Central venous access Age >= 75 History of VTE Family history of VTE Factor V Leiden Prothrombin [id number] Lupus anticoagulant Anticardiolipin antibodies Elevated serum homocysteine Heparin-induced thrombocytopenia Other congenital or acquired thrombophilia Stroke (< 1 month) Elective arthroplasty Hip, pelvis, or leg fracture Acute spinal cord injury (< 1 month) Prophylaxis Regimen: Total Risk Factor Score Risk Level Prophylaxis Regimen 0-1 Low Early ambulation 2 Moderate Order ONE of the following: *Sequential Compression Device (SCD) *Heparin 5000 units SQ BID 3-4 Higher Order ONE of the following medications: *Heparin 5000 units SQ TID *Enoxaparin/Lovenox 40 mg SQ daily (WT < 150 kg, CrCl > 30 mL/min) *Enoxaparin/Lovenox 30 mg SQ daily (WT < 150 kg, CrCl > 10-29 mL/min) *Enoxaparin/Lovenox 30 mg SQ BID (WT < 150 kg, CrCl > 30 mL/min) AND/OR *Sequential Compression Device (SCD) 5 or more Highest Order ONE of the following medications: *Heparin 5000 units SQ TID (Preferred with Epidurals) *Enoxaparin/Lovenox 40 mg SQ daily (WT < 150 kg, CrCl > 30 mL/min) *Enoxaparin/Lovenox 30 mg SQ daily (WT < 150 kg, CrCl > 10-29 mL/min) *Enoxaparin/Lovenox 30 mg SQ BID (WT < 150 kg, CrCl > 30 mL/min) AND *Sequential Compression Device (SCD) Assessment and Plan - Diagnosis (1) Code(s): Z34.90 - Encounter for supervision of normal , unspecified, unspecified trimester Status: Acute (2) Depression Code(s): F32.9 - Major depressive disorder, single episode, unspecified Status : Acute - Plan Patient is a 22 year old at 41/1 weeks gestation who presents for scheduled induction. FHT reassuring. /2 with bulging bag. Start Pitocin 2:2:30 Order urine drug screen Discussed w/Dr. García
[2018-06-08 09:45] LABS: Baso % (Auto) 0.2 % (0.0-2.0); Eos % (Auto) 0.4 % (0.0-4.0); Hematocrit 26.3 % (35.0-46.0); Hemoglobin 8.5 gm/dL (11.6-15.3); Lymph % (Auto) 15.9 % (9.0-44.0); Mean Corpuscular HGB Conc 32.2 % (32.0-36.0); Mean Corpuscular Hemoglobin 27.3 pg (27.0-34.0); Mean Corpuscular Volume 84.8 fL (80.0-100.0); Mean Platelet Volume 9.1 fL (7.0-11.0); Mono # (Auto) 0.8 th/mm3 (0.0-0.9); Mono % (Auto) 12.9 % (0.0-8.0); Neut # (Auto) 4.5 th/mm3 (1.8-7.7); Neut % (Auto) 70.6 % (16.0-70.0); Platelet Count 235 th/mm3 (150-450); Red Cell Distribution Width 16.2 % (11.6-17.2); White Blood Count 6.4 th/mm3 (4.0-11.0)
[2018-06-08 10:06] LABS: Bacteria,Urine Occasional /hpf; Bilirubin,Urine Negative (Negative); Clarity,Urine Hazy (Clear); Color,Urine Yellow (Yellw/Straw); Glucose,Urine (UA) Negative (Negative); Leukocyte Esterase,Urine Small (Negative); Mucus,Urine Few /lpf (Occasional); Nitrite,Urine Negative (Negative); Specific Gravity,Urine 1.004 (1.002-1.035); Squamous Epithelial Cell,Urine 7 /hpf (0-5)
[2018-06-08] MEDS ORDERED: fentaNYL 2MCG-Bupiv 0.125% Epi 150 ML EPIDURAL ONE (10:15)
[2018-06-08] MEDS ORDERED: Sodium Chlor 0.9% Inj 10 ML ONE (11:18)
[2018-06-08] MEDS ORDERED: Lidocaine PF 1% Inj 5 ML Vial ONE (11:18)
[2018-06-08] MEDS ORDERED: Lidocaaine 1.5%/Epinephrine 1:200,000 PF Inj 5 ML Amp ONE (11:19)
--- NOTE | 2018-06-08 11:30 | P.OBGPN ---
Patient seen and evaluated after signout received Examined cervix is /- Controlled AROM copious clear fluid heart rate category 1 Continue current plan
[2018-06-08] MEDS ORDERED: fentaNYL Citrate Inj 100 MCG/2 ML Ampul EPIDURAL ONE (11:59)
[2018-06-08] MEDS ORDERED: fentaNYL 2MCG-Bupiv 0.125% Epi 150 ML EPIDURAL PRN (11:59)
[2018-06-08] MEDS ORDERED: Oxytocin 30 Units/500ml Premix 30 UNITS/500 ML BAG IV.CONT PRN (15:42)
[2018-06-08] MEDS ORDERED: Acetaminophen 325 MG Tablet PO PRN ×2 (15:42→18:47)
[2018-06-08] MEDS ORDERED: Bisacodyl 10 MG Supp RECTAL PRN (15:42)
[2018-06-08] MEDS ORDERED: Witch Hazel 50%/Glyderin 12.5% 40 Pad Jar RECTAL PRN (15:42)
[2018-06-08] MEDS ORDERED: Zolpidem Tartrate 5 MG Tablet PO PRN ×2 (15:42→21:00)
[2018-06-08] MEDS ORDERED: Benzocaine 20% Top Spray 60 ML Can TOPICAL PRN (15:42)
[2018-06-08] MEDS ORDERED: Diphtheria/Tetanus/Pertussis Vaccine Inj 0.5 ML Syringe IM ONE (16:00)
[2018-06-08] MEDS ORDERED: Measles/Mumps/Rubella Vaccine Inj 0.5 ML Vial SQ ONE (16:00)
--- NOTE | 2018-06-08 16:05 | P.OBDELI ---
Weeks Gestation: 41 Anesthesia: Epidural Episiotomy: none Vaginal Delivery: Normal, Spontaneous Presentation: Occiput anterior Nuchal Cord: None Delayed Cord Clamping (45 sec): Yes Placenta: Spontaneous delivery, Intact, 3 vessel cord, Cord pH Laceration: Perineal Repair: Vicryl interrupted Estimated blood loss (mL): 50 Infant: Female Female A Delivery Date: 06/08/18 Delivery Time: 15:31 score (1 min): 7 score (5 min): 8 Additional Information: At 1531, this 22 y/o , now P2, delivered vaginally under epidural anesthesia. was delivered after Mom gave adequate pushing with contractions. Infant was placed on patient's abdomen after delivery. The cord was clamped and cut after about 45 seconds. Placenta was delivered intact w/ normal 3 vessel cord within 30 min. Sample of blood was obtained for blood cord gas. Fundus was firm with massage and IV Pit. There were 2 lacerations, one at 7 o'clock and 1 at 5'oclock. Two stitches were placed w/3-0 vicryl at 7 o'clock and one stitch at 5o'clock. Blood estimation was about 50 cc. Female infant weight pending, and scores are 7/8. Both mom and infant are recovering well. Dr. Roman and Dr. Davila were present for delivery, and Dr. Tejeda performed delivery.
[2018-06-08] MEDS ORDERED: Sertraline 50 MG Tablet PO ONE (18:21)
[2018-06-08] MEDS ORDERED: Mag Sulf/Water 4 gm/100 ml 100 ML IV.SIG ONE (18:47)
--- NOTE | 2018-06-08 18:53 | P.OBGPN ---
Status post earlier uneventful. Received call from RN on mother baby- persistent elevated BP. In spite of adequate pain management. Patient will be returned to labor and delivery for magnesium sulfate therapy
[2018-06-08] MEDS ORDERED: Labetalol HCl Inj 20 MG/4 ML Vial IV.PUSH STA (18:55)
[2018-06-08] MEDS ORDERED: Mag Sulf/Water 40 gm/1000 ml 40 GM/1,000 ML BAG IV.CONT SCH (19:00)
--- NOTE | 2018-06-08 20:10 | P.OBGPN ---
Patient on labor and delivery Magnesium sulfate is about to be initiated Informed by RN and also have seen the patient she denies any headaches chest pain shortness of breath right upper quadrant pain or leg pain Patient is awake alert orientated x3 communicating effectively Lungs clear abdomen soft no right upper quadrant tenderness Hyperreflexive with +4 clonus beating We will continue to monitor closely Ativan as needed for seizure prophylaxis
[2018-06-08 20:31] LABS: Hematocrit 28.5 % (35.0-46.0); Hemoglobin 8.9 gm/dL (11.6-15.3); Mean Corpuscular HGB Conc 31.1 % (32.0-36.0); Mean Corpuscular Hemoglobin 27.1 pg (27.0-34.0); Mean Corpuscular Volume 87.1 fL (80.0-100.0); Mean Platelet Volume 9.1 fL (7.0-11.0); Platelet Count 211 th/mm3 (150-450); Red Blood Count 3.27 mil/mm3 (4.00-5.30); Red Cell Distribution Width 16.3 % (11.6-17.2); White Blood Count 9.5 th/mm3 (4.0-11.0)
[2018-06-08 21:08] LABS: Alanine Aminotransferase 9 U/L (10-53); Albumin 2.3 g/dL (3.4-5.0); Alkaline Phosphatase 101 U/L (45-117); Anion Gap 14 meq/L (5-15); Aspartate Aminotransferase 33 U/L (15-37); Blood Urea Nitrogen 4 mg/dL (7-18); Calcium 8.2 mg/dL (8.5-10.1); Carbon Dioxide 20.1 meq/L (21.0-32.0); Chloride 105 meq/L (98-107); Glomerular Filtration Rate Greater Than 89 mL/min (>89); Glucose,Random 153 mg/dL (74-106); Total Protein 5.7 g/dL (6.4-8.2)
[2018-06-08 21:19] LABS: Potassium 3.8 meq/L (3.5-5.1); Sodium 139 meq/L (136-145)
--- NOTE | 2018-06-08 23:24 | P.OBGPN ---
Patient seen and evaluated She is awake alert orientated x3 Reflexes are brisk however asymptomatic Continue magnesium sulfate postdelivery times 24 hours
[2018-06-09] MEDS ORDERED: miSOPROStol 200 MCG Tablet ONE (00:08)
[2018-06-09] MEDS ORDERED: Carboprost Tromethamine Inj 250 MCG/ML Ampul IM ONE ×2 (00:09→00:51)
[2018-06-09] MEDS ORDERED: Phenylephrine/NS 1000 MCG/10ML Syringe IV.PUSH ONE (00:30)
[2018-06-09] MEDS ORDERED: Lidocaine PF 1% Inj 5 ML Syringe OTHER ONE (00:30)
[2018-06-09] MEDS ORDERED: Succinylcholine Inj 100 MG/5 ML Syringe IV.PUSH ONE (00:30)
[2018-06-09] MEDS ORDERED: Normosol-R pH 7.4 Inj 1,000 ML IV.CONT ONE (00:30)
[2018-06-09 00:31] LABS: Baso # (Auto) 0.1 th/mm3 (0.0-0.2); Baso % (Auto) 1.1 % (0.0-2.0); Eos % (Auto) 0.5 % (0.0-4.0); Hematocrit 25.8 % (35.0-46.0); Hemoglobin 8.2 gm/dL (11.6-15.3); Lymph # (Auto) 1.3 th/mm3 (1.0-4.8); Lymph % (Auto) 18.9 % (9.0-44.0); Mean Corpuscular HGB Conc 31.7 % (32.0-36.0); Mean Corpuscular Hemoglobin 27.2 pg (27.0-34.0); Mean Corpuscular Volume 85.9 fL (80.0-100.0); Mean Platelet Volume 8.6 fL (7.0-11.0); Mono # (Auto) 0.8 th/mm3 (0.0-0.9); Mono % (Auto) 10.9 % (0.0-8.0); Neut # (Auto) 4.8 th/mm3 (1.8-7.7); Neut % (Auto) 68.6 % (16.0-70.0); Platelet Count 211 th/mm3 (150-450); Red Cell Distribution Width 16.2 % (11.6-17.2)
[2018-06-09 00:44] LABS: Activated Partial Thrombo Time 27.6 sec (23.4-31.7)
[2018-06-09] MEDS ORDERED: Tranexamic Acid Inj 1,000 MG/10 ML Ampul ONE (01:03)
[2018-06-09 01:21] LABS: Baso % (Auto) 0.2 % (0.0-2.0); Eos % (Auto) 0.3 % (0.0-4.0); Lymph # (Auto) 1.5 th/mm3 (1.0-4.8); Lymph % (Auto) 10.5 % (9.0-44.0); Mean Corpuscular HGB Conc 31.4 % (32.0-36.0); Mean Corpuscular Hemoglobin 26.7 pg (27.0-34.0); Mean Corpuscular Volume 84.9 fL (80.0-100.0); Mean Platelet Volume 8.3 fL (7.0-11.0); Mono # (Auto) 1.5 th/mm3 (0.0-0.9); Mono % (Auto) 10.4 % (0.0-8.0); Neut # (Auto) 10.9 th/mm3 (1.8-7.7); Neut % (Auto) 78.6 % (16.0-70.0); Platelet Count 182 th/mm3 (150-450); Red Blood Count 2.33 mil/mm3 (4.00-5.30); Red Cell Distribution Width 16.2 % (11.6-17.2); White Blood Count 13.9 th/mm3 (4.0-11.0)
[2018-06-09 01:23] LABS: Hemoglobin 6.2 gm/dL (11.6-15.3)
[2018-06-09 01:24] LABS: Hematocrit 19.7 % (35.0-46.0)
[2018-06-09 01:31] LABS: Activated Partial Thrombo Time 32.9 sec (23.4-31.7); INR 1.2 Ratio; Prothrombin Time 11.9 sec (9.8-11.6)
[2018-06-09] MEDS ORDERED: Sugammadex Inj 200 MG/2 ML Vial IV.PUSH ONE (01:42)
[2018-06-09] MEDS ORDERED: fentaNYL Citrate Inj 100 MCG/2 ML Ampul ONE (02:26)
[2018-06-09] MEDS ORDERED: Labetalol HCl Inj 20 MG/4 ML Vial IV.PUSH PRN (02:30)
--- NOTE | 2018-06-09 02:35 | P.OP ---
- Preoperative Diagnosis (1) hemorrhage - Postoperative Diagnosis (1) Delayed hemorrhage (2) DIC (disseminated intravascular coagulation) (3) hemorrhage Date of procedure: 06/09/18 Procedure: curettage Anesthesia: KYA Surgeon: Luci Roman MD Distillery Worker General: Medical Student- Stephen Estimated blood loss (mL): 1,500 Pathology: other (Curettage sample) Operation and Findings: I was called to the bedside secondary to hemorrhage. Patient was seen complaining of a pounding headache and also blurred vision. Blood pressures were noted to be decreased from her initial. Patient seen at the bedside she had had 2 lacerations which were repaired earlier no extensions and no dehiscence of the repair. The fundus was noted to be firm along the abdomen however with a vaginal exam noted at the lower uterine segment was lax with copious amount of blood noted. Note at least with 4 episodes with every time patient had a Valsalva approximately anywhere from 300 cc of clotted and bright red blood noted. Patient was subsequently counseled for a curettage she was asked regarding her future childbearing which patient states she has done with childbearing and agrees to an emergent hysterectomy as needed. Complications such as permanent injury to the bowel bladder nerves blood vessels ureters any structures in the abdomen or pelvis reoperation risk of infection discussed with the patient and her partner. Partner offers a history that she had had a previous history of retained products with her last managed by curettage. Patient signs consent for curettage possible exploratory laparotomy and hysterectomy. Magnesium was subsequently discontinued due to the significant amount of hemorrhage and atony which was present. Patient was subsequently taken to the OR where she was placed under general endotracheal intubation. Prepped and draped in normal sterile fashion. Antibiotics were subsequently administered. Cytotec per rectum have been given in the room approximately 800 mcg. 400 mcg had been given p.o.. In the OR also administered Hemabate. Administered TXA 1 g. Aggressive curettage was performed. With clots noted. However in spite of the aggressive curettage with a gritty texture noted in the 360 degree fashion fundus now appears to be firm still bleeding noted which was bright red suspect DIC. Earlier CBC had been obtained PT PTT and fibrinogen. While in the OR noted or received report fibrinogen approximately 160 and initial hemoglobin approximately 8-blood products were in route and repeat of all labs ordered. A bakery balloon was placed however patient continued to bleed around the balloon in spite of adequate insufflation. Proceeded to attempt to elevate the uterus in an effort to compress the uterine arteries-which appeared to be successful and slow down the bleeding and began to prepare for emergent hysterectomy. Please note from the beginning of the case Dr. Davila also present as a second assist. However after observing the patient for several minutes noted that the bleeding had significantly subsided. A second panel CBC hemoglobin was 6.2/fibrinogen 116/ platelet count normal. 2 units of packed RBCs were administered which were type and cross. 1 unit of FFP is administered. Stated with the patient observed her times several more minutes. She was noted to be hemodynamically stable. Bleeding subsided. Patient subsequently transferred to the unit for continued monitoring-transfer accepted by Dr. Steve Mullins. This for seizure prophylaxis we will initiate Chelsy
[2018-06-09] MEDS ORDERED: levETIRAcetam 1000mg/100mL Inj 100 ML IV.SIG ONE (02:36)
--- NOTE | 2018-06-09 02:38 | P.OBGPN ---
Post surgery patient made aware of the events, significant other as well
--- NOTE | 2018-06-09 03:24 | P.CONCC ---
History of Present Illness Service: [facility] Consult date: 06/09/18 Requesting Physician: Luci Roman Reason for Consult: hemorrhage, DIC, pre-eclampsia Primary Care Provider: No Primary Care Physician Chief Complaint: induction History of Present Illness: This is a 22yF, , who presented on 06/08 for induction of labor at 39 weeks' gestation. She had a vaginal delivery yesterday afternoon, after which she was noted to have 2 vaginal lacerations which were repaired without difficulty. Yesterday evening, she began to have hypertension, marked hyperreflexia, and began to complain of visual disturbance so she was started on a magnesium sulfate drip for pre-eclampsia. Overnight, she developed heavy vaginal bleeding and was taken to the operating room for surgical exploration and curettage. During surgery, she was noted to have a fibrinogen level of 117 and a hemoglobin of 6.2. No retained products of conception or other obvious bleeding sources were identified but she was noted to have uterine atony. Overall, she was given cytotec, hemabate, TXA, 2U PRBCs, and 1U FFP; she had curettage performed and a Bakri balloon was placed intra-op. Her bleeding was noted to slow to a trickle after elevation of the uterus for uterine artery compression. The Bakri balloon was removed prior to leaving the operating room. The patient was subsequently transferred to [facility] in stable condition. She only complains of pelvic and lower back pain ("aching", non-radiating, constant, moderate intensity). As per chart review, the patient had pre-eclampsia during her last as well, and has had a seizure at least once in the past but does not take any antiepileptic medications. Review of Systems All other systems reviewed negative except as stated in HPI Constitutional: Denies fever(s) Eyes: Reports change in vision Comments: Reported visual disturbance earlier this evening, now resolved Cardiovascular: Denies chest pain Respiratory: Denies cough Gastrointestinal: Denies nausea Genitourinary: Reports pelvic pain Musculoskeletal: Reports back pain Neurologic: Denies confusion Psychiatric: Denies confusion PMFSH - History History Provided By: Patient - Medical History Medical History: Medical History (Last Reviewed 06/09/18 @ 03:18 by Ame Rizo DO) Iron deficiency anemia Preeclampsia - Surgical History Surgical History: Surgical History (Last Reviewed 06/09/18 @ 03:18 by AZEB Graff H/O dilation and curettage - Social History I have reviewed the patient's Social History: Yes - Tobacco History Second Hand Smoke Exposure: No Smoking Status: Never smoker - Alcohol History How Often Do You Have a Drink Containing Alcohol: Never - Substance Use History Substance History: No History of Abuse - Travel History Recent Travel in the [place] Within the Last 8 Weeks: No Recent Travel Out of the Country Within the Last 8 Weeks: No - Immunization History Hx Influenza Vaccine This Season: No Medications and Allergies Active Medications: Active Medications Acetaminophen (Tylenol) 650 mg PO Q4H PRN PRN Reason: PAIN SCALE 1 TO 2 Last Admin: 06/08/18 16:47 Dose: 650 mg Acetaminophen (Tylenol) 650 mg PO Q4H PRN PRN Reason: PAIN SCALE 1 TO 2 Al Hydroxide/Mg Hydroxide (Milk Of Magnesia Liq) 30 ml PO Q12H PRN PRN Reason: Mild Constipation Amoxicillin (Amoxil) 250 mg PO BID [facility] Stop: 06/14/18 08:59 Benzocaine (Americaine 20% Top [place]) 1 spray TOPICAL Q4H PRN PRN Reason: For Perineum Discomfort Bisacodyl (Dulcolax Supp) 10 mg RECTAL DAILY PRN PRN Reason: SEVERE CONSITIPATION Calcium Gluconate (Calcium Gluconate Inj) 1 gm IV.PUSH PRN PRN PRN Reason: Magnesium toxicity Diphtheria/Pertussis/Tetanus Vacc (Boostrix Vaccine Inj) 0.5 ml IM .ONCE ONE Stop: 06/09/18 16:01 Ephedrine Sulfate (Ephedrine/Ns Syringe) 10 mg IV.PUSH UNSCH PRN PRN Reason: SEE LABEL COMMENTS Stop: 06/09/18 12:00 Oxytocin (Pitocin 30 Units/Ns 500 Ml Premix) 30 units in 500 mls @ 2 mls/hr IV.SIG TITRATE PRN; Protocol PRN Reason: For induction of labor Last Admin: 06/08/18 09:49 Dose: 2 milliunit/min, 2 mls/hr Fentanyl/Bupivacaine/Sodium Chlor (Fentanyl 2 Mcg-Bupiv 0.125% Epi) 150 mls @ 10 mls/hr EPIDURAL PRN PRN PRN Reason: for Labor Pain Oxytocin (Pitocin 30 Units/Ns 500 Ml Premix) 30 units in 500 mls @ 100 mls/hr IV.CONT UNSCH PRN PRN Reason: Heavy bleeding Lactated Ringer's (Lr 1000 Ml Inj) 1,000 mls @ 75 mls/hr IV.CONT .[id number] ASHANTI Last Admin: 06/09/18 02:54 Dose: 75 mls/hr Magnesium Sulfate (Magnesium Sulfate/Water 40 Gm/1000 Ml Premix) 40 gm in 1, 000 mls @ 50 mls/hr IV.CONT Q24H [facility] Ibuprofen (Motrin) 800 mg PO Q8H PRN PRN Reason: For Cramping Last Admin: 06/08/18 16:46 Dose: 800 mg Lactulose (Lactulose Liq) 30 ml PO DAILY PRN PRN Reason: SEVERE CONSITIPATION Levetiracetam (Keppra) 500 mg PO BID [facility] Lorazepam (Ativan Inj) 2 mg IV.PUSH Q1M PRN PRN Reason: SEIZURES Measles/Mumps/Rubella Vaccine Live (M-M-R Ii Vaccine Inj) 0.5 ml SQ .ONCE ONE Stop: 06/09/18 16:01 Miscellaneous Information (Misc Information) 1 each OTHER UNSCH PRN PRN Reason: SEE LABEL COMMENTS Stop: 06/09/18 12:00 Miscellaneous Information (Misc Information) 1 each OTHER UNSCH PRN PRN Reason: SEE LABEL COMMENTS Stop: 06/09/18 12:00 Miscellaneous Information (Misc Nursing Information) 1 each OTHER UNSCH PRN PRN Reason: SEE LABEL COMMENTS Stop: 06/10/18 01:59 Naloxone HCl (Narcan Inj) 0.1 mg IV.PUSH Q2M PRN PRN Reason: for opiate reversal Ondansetron HCl (Zofran Odt) 4 mg PO Q6H PRN PRN Reason: NAUSEA OR VOMITING Ondansetron HCl (Zofran Inj) 4 mg IV.PUSH Q6H PRN PRN Reason: NAUSEA OR VOMITING Oxycodone/Acetaminophen (Percocet 5/325 Mg) 1 tab PO Q4H PRN PRN Reason: BREAKTHROUGH PAIN Last Admin: 06/08/18 22:47 Dose: 1 tab Senna/Docusate Sodium (Patti-Colace) 1 tab PO BID [facility] Sennosides (Senokot) 17.2 mg PO Q12H PRN PRN Reason: Moderate Constipation Sertraline HCl (Zoloft) 50 mg PO DAILY [facility] Sodium Chloride (Ns Flush) 2 ml IV.FLUSH BID [facility] Sodium Chloride (Ns Flush) 2 ml IV.FLUSH PRN PRN PRN Reason: FLUSH AFTER USING IV ACCESS Witch Lori/Glycerin (Tucks Pads) 1 applicatio RECTAL QID PRN PRN Reason: HEMORRHOIDS Zolpidem Tartrate (Ambien) 5 mg PO HS PRN PRN Reason: SLEEP Zolpidem Tartrate (Ambien) 5 mg PO HS PRN PRN Reason: INSOMNIA Allergies Allergy/AdvReac Type Severity Reaction Status Date / Time almond Allergy Unknown Hives Verified 06/08/18 08:43 apple Allergy Unknown Hives Verified 06/08/18 08:43 peach Allergy Unknown Hives Verified 06/08/18 08:43 pear Allergy Unknown Hives Verified 06/08/18 08:43 plum Allergy Unknown Hives Verified 06/08/18 08:43 shrimp Allergy Unknown Hives Verified 06/08/18 08:43 Home Medications Medication Instructions Recorded Confirmed Type vit,[id number] 1 tab PO DAILY 03/28/18 06/08/18 History [Prenatabs FA] sertraline [Zoloft] 50 mg PO DAILY 05/24/18 06/08/18 History Physical Exam Vital signs: Vital Signs 06/08/18 08:58 06/08/18 09:35 06/08/18 09:40 Temperature 98.4 F Pulse Rate 75 72 72 Respiratory Rate Blood Pressure 146/99 H 06/08/18 10:35 06/08/18 10:44 06/08/18 11:10 Temperature Pulse Rate 71 75 81 Respiratory Rate Blood Pressure 153/98 H 152/90 H 126/86 06/08/18 11:15 06/08/18 12:10 06/08/18 12:25 Temperature 98.7 F Pulse Rate 75 70 Respiratory Rate Blood Pressure 131/81 153/93 H 06/08/18 13:00 06/08/18 13:10 06/08/18 13:35 Temperature 98.0 F Pulse Rate 69 75 Respiratory Rate 18 18 Blood Pressure 149/88 H 06/08/18 14:10 06/08/18 14:40 06/08/18 15:00 Temperature Pulse Rate 81 92 H 79 Respiratory Rate Blood Pressure 156/100 H 130/82 06/08/18 15:10 06/08/18 15:30 06/08/18 15:40 Temperature 98.1 F Pulse Rate 105 H Respiratory Rate 18 Blood Pressure 151/102 H 183/102 H 06/08/18 16:02 06/08/18 16:30 06/08/18 16:44 Temperature Pulse Rate 107 H 86 83 Respiratory Rate Blood Pressure 144/97 H 159/99 H 144/90 H 06/08/18 17:00 06/08/18 18:00 06/08/18 18:40 Temperature 97.9 F Pulse Rate 66 Respiratory Rate 17 Blood Pressure 166/97 H 173/105 H 173/105 H 06/08/18 19:10 06/08/18 19:35 06/08/18 20:00 Temperature Pulse Rate 16 L Respiratory Rate 16 Blood Pressure 155/99 H 161/98 H 154/91 H 06/08/18 20:10 06/08/18 20:15 06/08/18 20:20 Temperature Pulse Rate 80 68 Respiratory Rate 16 Blood Pressure 134/91 H 125/87 135/95 H 06/08/18 20:50 06/08/18 21:33 06/08/18 22:32 Temperature 98.4 F Pulse Rate 82 81 81 Respiratory Rate 16 16 16 Blood Pressure 141/95 H 137/85 138/92 H 06/08/18 23:05 06/08/18 23:35 06/08/18 23:50 Temperature Pulse Rate 65 77 Respiratory Rate 16 18 Blood Pressure 144/100 H 121/85 06/09/18 00:10 06/09/18 00:20 Temperature Pulse Rate 70 Respiratory Rate Blood Pressure 114/90 121/97 H Intake & Output 06/08/18 06/08/18 06/09/18 06:59 18:59 06:59 Weight 61.235 kg Other: Weight On Admission 61.235 kg Narrative: GEN: Well-appearing, no acute distress HEENT: Mucosa moist and pink, PERRL NECK: Supple, midline trachea CARDIO: Regular rate and rhythm, SBP 160 mmHg PULM: Clear to auscultation bilaterally ABD/GI: Uterine fundus firm, abdomen has diffuse appropriate tenderness, no guarding or rebound EXT/MSK: Trace peripheral edema SKIN: Warm and well-perfused, no pallor NEURO: Awake and alert, answers all questions appropriately, moves all extremities, no focal neuro deficits PSYCH: Appropriate affect Assessment and Plan - Problem List (1) Preeclampsia Code(s): O14.90 - Unspecified pre-eclampsia, unspecified trimester Status: Acute (2) Code(s): Z34.90 - Encounter for supervision of normal , unspecified, unspecified trimester Status: Acute (3) Depression Code(s): F32.9 - Major depressive disorder, single episode, unspecified Status : Acute (4) Delayed hemorrhage Code(s): O72.2 - Delayed and secondary hemorrhage Status: Acute (5) DIC (disseminated intravascular coagulation) Code(s): D65 - Disseminated intravascular coagulation [defibrination syndrome] Status: Acute - Assessment and Plan Plan: 22yF with delayed hemorrhage, disseminated intravascular coagulation , and pre-eclampsia s/p induced vaginal delivery NEURO: Pre-eclampsia History of seizure History of depression -Patient experienced uterine atony leading to hemorrhage after being started on magnesium sulfate for seizure prophylaxis. Although mag sulfate is the drug of choice for pre-eclampsia, at this point I feel the risks of recurrent hemorrhage outweigh the benefits of continuing mag. Therefore, would recommend giving a loading dose of Keppra followed by BID dosing with close neuro monitoring in ISC -Seizure precautions -Continue home dose of zoloft -Pain control PRN CARDIO: Pre-eclampsia -Magnesium discontinued as noted above; will give PRN labetalol/ hydralazine for BP control, goal SBP <160 mmHg PULM: -Incentive spirometry F/E/N: -Regular diet -D/C IVF as patient is receiving a lot of volume from blood product transfusions -Bowel regimen HEME: Acute blood loss anemia requiring transfusions Delayed hemorrhage Disseminated intravascular coagulation -Patient received 2U PRBCs, 1U FFP, 1 gram TXA, hemabate, and cytotec -Recheck labs stat, including CBC, INR, fibrinogen; will also send VBG to check base deficit -Monitor closely for signs of continued or recurrent bleeding OBGYN: s/p vaginal delivery Uterine atony-- resolved -Routine care, serial exams, coaching if patient is planning to breastfeed -Continue vitamins PROPHY: -SCDs, hold chemical DVT prophylaxis for now -No indication for PPI OVERALL: This patient is critically ill and requires ICU level of care. She is at high risk for decompensation. Counseling/ Coordination of Care: This patient is critically ill with impairment of one or more vital organ systems with a high probability of imminent or life-threatening deterioration. High-complexity medical decision making was required to support vital organ function and/ or prevent deterioration of the patient's condition. Total critical care time spent is 62 minutes giving full attention to this patient. This includes examining the patient, gathering history from someone other than the patient (i.e. chart review), discussing the patient's care with other providers, managing the patient's blood pressure and seizure prophylaxis, ordering and interpreting laboratory values, re-evaluation at frequent intervals , and documentation. Amount of time is separate from teaching, counseling the patient and/or family, and exclusive of procedures. Code Status: Full Discussed Condition With: Dr. Keith, Dr. Roman
[2018-06-09] MEDS ORDERED: hydrALAZINE HCl Inj 20 MG/ML Vial IV.PUSH PRN (03:38)
[2018-06-09] MEDS ORDERED: Labetalol HCl Inj 100 MG/20 ML Vial IV.PUSH PRN (03:38)
[2018-06-09 03:58] LABS: VBG Base Excess 0.8 mmol/L (-2-2); VBG Blood Gas Oxygen Content 10.9 Vol % (9.0-17.0); VBG PCO2 45 mmHG (44-48); VBG PH 7.37 (7.360-7.400); VBG PO2 51 mmHG (35-40)
[2018-06-09 04:32] LABS: Baso % (Auto) 0.1 % (0.0-2.0); Eos % (Auto) 0.1 % (0.0-4.0); Hematocrit 30.2 % (35.0-46.0); Hemoglobin 9.9 gm/dL (11.6-15.3); Lymph # (Auto) 0.6 th/mm3 (1.0-4.8); Lymph % (Auto) 4.9 % (9.0-44.0); Mean Corpuscular HGB Conc 32.8 % (32.0-36.0); Mean Corpuscular Hemoglobin 28.2 pg (27.0-34.0); Mean Corpuscular Volume 86.1 fL (80.0-100.0); Mean Platelet Volume 8.2 fL (7.0-11.0); Mono # (Auto) 1.3 th/mm3 (0.0-0.9); Mono % (Auto) 10.6 % (0.0-8.0); Neut # (Auto) 10.5 th/mm3 (1.8-7.7); Neut % (Auto) 84.3 % (16.0-70.0); Platelet Count 127 th/mm3 (150-450); Red Blood Count 3.51 mil/mm3 (4.00-5.30); White Blood Count 12.4 th/mm3 (4.0-11.0)
[2018-06-09 04:42] LABS: Activated Partial Thrombo Time 28.7 sec (23.4-31.7); INR 1.1 Ratio
[2018-06-09 05:02] LABS: Alanine Aminotransferase 18 U/L (10-53); Albumin 2.3 g/dL (3.4-5.0); Anion Gap 10 meq/L (5-15); Aspartate Aminotransferase 35 U/L (15-37); Blood Urea Nitrogen 5 mg/dL (7-18); Calcium 7.2 mg/dL (8.5-10.1); Carbon Dioxide 25.6 meq/L (21.0-32.0); Chloride 106 meq/L (98-107); Glomerular Filtration Rate Greater Than 89 mL/min (>89); Glucose,Random 119 mg/dL (74-106); Magnesium 3.5 mg/dL (1.5-2.5); Potassium 3.3 meq/L (3.5-5.1); Sodium 142 meq/L (136-145)
[2018-06-09 05:08] LABS: Alkaline Phosphatase 94 U/L (45-117); Total Protein 5.1 g/dL (6.4-8.2)
[2018-06-09] MEDS: Senna/Docusate Sodium 8.6/50 MG Tablet PO SCH ×3 (07:15→20:09)
[2018-06-09] MEDS: Amoxicillin 250 MG Capsule PO SCH ×2 (08:20→20:24)
[2018-06-09] MEDS: Prenatal Vit/Ca/Iron/Folic Acid Tablet PO SCH (08:21)
[2018-06-09] MEDS: levETIRAcetam 500 MG Tablet PO SCH ×2 (08:21→20:24)
[2018-06-09] MEDS: Ferrous Sulfate 325 MG Tablet PO SCH ×2 (08:22→20:24)
--- NOTE | 2018-06-09 08:33 | P.PNOB ---
Subjective Post day: 0 Interval history: day number 1. AFVSS overnight. Pain controlled w/medication. Patient is feeling sleepy. Is passing gas. Ambulating well. Denies calf pain , shortness of breath, or cough. Otherwise, she is doing well this morning and has no other complaints. Objective Vital Signs/I&O: Vital Signs 06/08/18 08:58 06/08/18 09:35 06/08/18 09:40 Temperature 98.4 F Pulse Rate 75 72 72 Respiratory Rate Blood Pressure 146/99 H Pulse Oximetry 06/08/18 10:35 06/08/18 10:44 06/08/18 11:10 Temperature Pulse Rate 71 75 81 Respiratory Rate Blood Pressure 153/98 H 152/90 H 126/86 Pulse Oximetry 06/08/18 11:15 06/08/18 12:10 06/08/18 12:25 Temperature 98.7 F Pulse Rate 75 70 Respiratory Rate Blood Pressure 131/81 153/93 H Pulse Oximetry 06/08/18 13:00 06/08/18 13:10 06/08/18 13:35 Temperature 98.0 F Pulse Rate 69 75 Respiratory Rate 18 18 Blood Pressure 149/88 H Pulse Oximetry 06/08/18 14:10 06/08/18 14:40 06/08/18 15:00 Temperature Pulse Rate 81 92 H 79 Respiratory Rate Blood Pressure 156/100 H 130/82 Pulse Oximetry 06/08/18 15:10 06/08/18 15:30 06/08/18 15:40 Temperature 98.1 F Pulse Rate 105 H Respiratory Rate 18 Blood Pressure 151/102 H 183/102 H Pulse Oximetry 06/08/18 16:02 06/08/18 16:30 06/08/18 16:44 Temperature Pulse Rate 107 H 86 83 Respiratory Rate Blood Pressure 144/97 H 159/99 H 144/90 H Pulse Oximetry 06/08/18 17:00 06/08/18 18:00 06/08/18 18:40 Temperature 97.9 F Pulse Rate 66 Respiratory Rate 17 Blood Pressure 166/97 H 173/105 H 173/105 H Pulse Oximetry 06/08/18 19:10 06/08/18 19:35 06/08/18 20:00 Temperature Pulse Rate 16 L Respiratory Rate 16 Blood Pressure 155/99 H 161/98 H 154/91 H Pulse Oximetry 06/08/18 20:10 06/08/18 20:15 06/08/18 20:20 Temperature Pulse Rate 80 68 Respiratory Rate 16 Blood Pressure 134/91 H 125/87 135/95 H Pulse Oximetry 06/08/18 20:50 06/08/18 21:33 06/08/18 22:32 Temperature 98.4 F Pulse Rate 82 81 81 Respiratory Rate 16 16 16 Blood Pressure 141/95 H 137/85 138/92 H Pulse Oximetry 06/08/18 23:05 06/08/18 23:35 06/08/18 23:50 Temperature Pulse Rate 65 77 Respiratory Rate 16 18 Blood Pressure 144/100 H 121/85 Pulse Oximetry 06/09/18 00:10 06/09/18 00:20 06/09/18 02:06 Temperature 97.4 F L Pulse Rate 70 93 H Respiratory Rate 17 Blood Pressure 114/90 121/97 H 154/112 H Pulse Oximetry 100 06/09/18 02:10 06/09/18 02:15 06/09/18 02:25 Temperature Pulse Rate 94 H 90 85 Respiratory Rate 14 14 14 Blood Pressure 165/112 H 153/105 H 147/94 H Pulse Oximetry 100 99 100 06/09/18 02:30 06/09/18 02:35 06/09/18 02:45 Temperature Pulse Rate 84 91 H 85 Respiratory Rate 14 22 16 Blood Pressure 146/95 H 174/119 H 157/100 H Pulse Oximetry 99 98 100 06/09/18 02:50 06/09/18 02:55 06/09/18 03:00 Temperature 98.3 F Pulse Rate 89 82 82 Respiratory Rate 15 15 22 Blood Pressure 157/84 H 145/89 H 135/83 Pulse Oximetry 99 99 99 06/09/18 03:15 06/09/18 03:39 06/09/18 03:40 Temperature 98.2 F Pulse Rate 86 Respiratory Rate 20 Blood Pressure 142/78 H 161/100 H Pulse Oximetry 99 100 06/09/18 04:00 06/09/18 04:39 06/09/18 05:00 Temperature 98.2 F Pulse Rate 71 77 71 Respiratory Rate 15 16 18 Blood Pressure 144/90 H Pulse Oximetry 100 100 100 06/09/18 05:39 06/09/18 06:00 Temperature Pulse Rate 67 68 Respiratory Rate 11 L 14 Blood Pressure 119/64 Pulse Oximetry 99 99 Intake & Output 06/08/18 06/09/18 06/09/18 18:59 06:59 18:59 Intake Total 740 / 740 Output Total 1300 / 1300 Balance -560 / -560 Weight 61.235 kg 62.5 kg Intake: IV 100 / 100 Keppra 1000 mg/100 mL Premix 100 / 100 100 ML @ 400 mls/hr IV.SIG ONCE ONE Rx#:[id number] Oral 440 / 440 Anesthesia Amount 200 / 200 Output: Urine Amount (Catheter) 1300 / 1300 Indwelling Urethral Catheter 1300 / 1300 Other: Date of Last Bowel Movement 06/09/18 # Bowel Movements 2 Weight On Admission 61.235 kg Result Diagrams: 06/09/18 04:14 06/09/18 04:14 Objective Remarks: GENERAL: Well-nourished, well-developed patient sleeping in bed. CARDIOVASCULAR: Regular rate and rhythm without murmurs, gallops, or rubs. RESPIRATORY: Breath sounds equal bilaterally. No accessory muscle use. ABDOMEN/GI: Abdomen soft and non-distended. Medications and IVs: Active Medications Acetaminophen (Tylenol) 650 mg PO Q4H PRN PRN Reason: PAIN SCALE 1 TO 2 Al Hydroxide/Mg Hydroxide (Milk Of Magnhussain Liq) 30 ml PO Q12H PRN PRN Reason: Mild Constipation Amoxicillin (Amoxil) 250 mg PO BID [facility] Stop: 06/14/18 08:59 Benzocaine (Americaine 20% Top [place]) 1 spray TOPICAL Q4H PRN PRN Reason: For Perineum Discomfort Bisacodyl (Dulcolax Supp) 10 mg RECTAL DAILY PRN PRN Reason: SEVERE CONSITIPATION Calcium Gluconate (Calcium Gluconate Inj) 1 gm IV.PUSH PRN PRN PRN Reason: Magnesium toxicity Diphtheria/Pertussis/Tetanus Vacc (Boostrix Vaccine Inj) 0.5 ml IM .ONCE ONE Stop: 06/09/18 16:01 Ferrous Sulfate (Ferosul) 325 mg PO BID [facility] Hydralazine HCl (Apresoline Inj) 20 mg IV.PUSH Q4H PRN PRN Reason: SBP>160, DBP>90 Magnesium Sulfate (Magnesium Sulfate/Water 40 Gm/1000 Ml Premix) 40 gm in 1, 000 mls @ 50 mls/hr IV.CONT Q24H [facility] Last Admin: 06/08/18 20:00 Dose: 2 gm/hr, 50 mls/hr Ibuprofen (Motrin) 800 mg PO Q8H PRN PRN Reason: For Cramping Last Admin: 06/08/18 16:46 Dose: 800 mg Labetalol HCl (Trandate Inj) 10 mg IV.PUSH Q4H PRN PRN Reason: SBP>160, DBP>90 Lactulose (Lactulose Liq) 30 ml PO DAILY PRN PRN Reason: SEVERE CONSITIPATION Levetiracetam (Keppra) 500 mg PO BID [facility] Lorazepam (Ativan Inj) 2 mg IV.PUSH Q1M PRN PRN Reason: SEIZURES Measles/Mumps/Rubella Vaccine Live (M-M-R Ii Vaccine Inj) 0.5 ml SQ .ONCE ONE Stop: 06/09/18 16:01 Miscellaneous Information ([facility]) 1 each OTHER UNSCH PRN PRN Reason: SEE LABEL COMMENTS Stop: 06/10/18 01:59 Naloxone HCl (Narcan Inj) 0.1 mg IV.PUSH Q2M PRN PRN Reason: for opiate reversal Ondansetron HCl (Zofran Inj) 4 mg IV.PUSH Q6H PRN PRN Reason: NAUSEA OR VOMITING Oxycodone/Acetaminophen (Percocet 5/325 Mg) 1 tab PO Q4H PRN PRN Reason: BREAKTHROUGH PAIN Last Admin: 06/09/18 04:48 Dose: 1 tab Vit/Calcium/Iron/Folic Ac (Stuartnatal Plus 3) 1 tab PO DAILY [facility] Senna/Docusate Sodium (Patti-Colace) 1 tab PO BID [facility] Last Admin: 06/09/18 07:15 Dose: Not Given Sennosides (Senokot) 17.2 mg PO Q12H PRN PRN Reason: Moderate Constipation Sertraline HCl (Zoloft) 50 mg PO DAILY [facility] Sodium Chloride (Ns Flush) 2 ml IV.FLUSH BID [facility] Last Admin: 06/09/18 06:00 Dose: Not Given Sodium Chloride (Ns Flush) 2 ml IV.FLUSH PRN PRN PRN Reason: FLUSH AFTER USING IV ACCESS Witch Lori/Glycerin (Tucks Pads) 1 applicatio RECTAL QID PRN PRN Reason: HEMORRHOIDS Zolpidem Tartrate (Ambien) 5 mg PO HS PRN PRN Reason: INSOMNIA Assessment and Plan - Diagnosis (1) Depression Code(s): F32.9 - Major depressive disorder, single episode, unspecified Status : Acute (2) Vaginal delivery Code(s): O80 - Encounter for full-term uncomplicated delivery Status: Acute (3) hemorrhage Code(s): O72.1 - Other immediate hemorrhage Status: Acute (4) DIC (disseminated intravascular coagulation) Code(s): D65 - Disseminated intravascular coagulation [defibrination syndrome] Status: Acute (5) Preeclampsia Code(s): O14.90 - Unspecified pre-eclampsia, unspecified trimester Status: Acute - Plan Patient is day 1 after vaginal delivery @. Is POD #0 for PPH. 1. --AF VSS --Continue routine care --Motrin and Percocet when necessary for pain --Encourage OOB --Pelvic rest for 6 weeks will need follow-up appointment at that time. --Contraception: unknown at this time 2. Preeclampsia - BP levels improving --Was on MgSO4 for elevated blood pressures after delivery. However, due to concern that this could worsen uterine atony, it was promptly discontinued. --Is on Keppra 500 mg BID for seizure prophylaxis and seizure precautions. Ativan PRN for acute seizure activity. --Control BP w/labetalol or hydralazine 3. S/p PPH - Given cytotec, hemabate, TXA, 2U PRBCs, and 1U FFP; she had curettage performed and a Bakri balloon was placed intra-op, which all contributed to resolution. - 2 PRBCs and 1 FFP given, Hgb increased from 6.2->9.9 - Provide iron supplementation w/vitamin C - Monitor for recurrent bleeding 4. DIC -CC consulted, appreciate assistance in patient's care and monitoring - Trend coag profile 5. Depression - Con't home medication DW PL - Attending Attestation Patient seen markedly improved BPs are within normal She denies any headaches or visual symptoms at this time Currently in the ICU Hemoglobin improved Fundus firm lochia moderate significantly improved from yesterday
[2018-06-09] MEDS ORDERED: Sertraline 50 MG Tablet PO SCH (09:00)
[2018-06-09 10:20] VITALS: O2SAT 99
[2018-06-09] MEDS: miSOPROStol 200 MCG Tablet PO SCH ×3 (12:47→20:33)
[2018-06-09] MEDS ORDERED: Diphtheria/Tetanus/Pertussis Vaccine Inj 0.5 ML Syringe IM ONE (16:00)
[2018-06-09] MEDS ORDERED: Measles/Mumps/Rubella Vaccine Inj 0.5 ML Vial SQ ONE (16:00)
--- NOTE | 2018-06-09 19:02 | P.OBGPN ---
I was consulted this morning right after midnight to come in to see a patient who was having a severe hemorrhage. I arrived and spent over an hour and a half in the operating theater with this patient managing her medicines and her hemorrhage. We were preparing to do a hysterectomy and after multiple medications and maneuvers we calmed down her bleeding. I escorted her to the recovery room and spoke with the client manager [employer] on -call in the intensive care unit. Time spent with the patient was just under 2 hours of which an hour and a half was being at the bedside coordinating the care of this patient. Today I came by to see her and conferred with the hospitalist on duty. She is looking much better today and I think we are out of the pena at this time. I told the patient I think she needs a bleeding diathesis workup. At this time I will sign off on the case.
[2018-06-09 20:05] LABS: Hematocrit 25.3 % (35.0-46.0); Hemoglobin 8.5 gm/dL (11.6-15.3); Mean Corpuscular HGB Conc 33.5 % (32.0-36.0); Mean Corpuscular Hemoglobin 28.5 pg (27.0-34.0); Mean Corpuscular Volume 84.9 fL (80.0-100.0); Mean Platelet Volume 8.6 fL (7.0-11.0); Platelet Count 123 th/mm3 (150-450); Red Blood Count 2.98 mil/mm3 (4.00-5.30); Red Cell Distribution Width 15.5 % (11.6-17.2); White Blood Count 9.4 th/mm3 (4.0-11.0)
[2018-06-09] MEDS: Sertraline 50 MG Tablet PO SCH (20:24)
[2018-06-09 20:28] LABS: Anion Gap 8 meq/L (5-15); Blood Urea Nitrogen 6 mg/dL (7-18); Calcium 7.6 mg/dL (8.5-10.1); Carbon Dioxide 27.4 meq/L (21.0-32.0); Chloride 105 meq/L (98-107); Glomerular Filtration Rate Greater Than 89 mL/min (>89); Glucose,Random 94 mg/dL (74-106); Potassium 3.9 meq/L (3.5-5.1); Sodium 140 meq/L (136-145)
[2018-06-10] MEDS: miSOPROStol 200 MCG Tablet PO SCH ×2 (03:22→09:02)
[2018-06-10] MEDS: levETIRAcetam 500 MG Tablet PO SCH ×2 (09:02→21:43)
[2018-06-10] MEDS: Amoxicillin 250 MG Capsule PO SCH ×2 (09:02→21:43)
[2018-06-10] MEDS: Ferrous Sulfate 325 MG Tablet PO SCH ×2 (09:02→21:43)
[2018-06-10] MEDS: Senna/Docusate Sodium 8.6/50 MG Tablet PO SCH ×2 (09:02→21:44)
[2018-06-10] MEDS: Prenatal Vit/Ca/Iron/Folic Acid Tablet PO SCH (09:02)
--- NOTE | 2018-06-10 09:46 | P.PNOB ---
Subjective Post day: 2 Interval history: Patient is day 2, status post hemorrhage, receiving 2 units of blood and 1 unit of fresh frozen plasma. Extensive discussion had with patient and significant other regarding what happened with her hemorrhage, meaning of a DIC, and treatment received. Patient expressed understanding, she is feeling well today however continues to feel sore on her abdomen. She is not bleeding at this moment, would like to eat something today, she felt dizzy yesterday when standing up. We will try again today. Denies nausea and vomiting, passing flatus. Vital signs within normal limits. Denies dysuria. No breast tenderness. Denies calf pain, shortness of breath, or cough. Otherwise, she is doing well this morning and has no other complaints. Discussed she would likely go home tomorrow or the day after. Objective Vital Signs/I&O: Vital Signs 06/09/18 10:00 06/09/18 12:35 06/09/18 20:00 Temperature 98.1 F 99.0 F Pulse Rate 72 77 83 Respiratory Rate 16 18 18 Blood Pressure 124/91 H 110/72 Pulse Oximetry 99 06/09/18 23:57 06/10/18 03:55 06/10/18 08:55 Temperature 99.5 F 99.0 F 99.4 F Pulse Rate 95 H 97 H 89 Respiratory Rate 18 18 17 Blood Pressure 126/82 130/78 151/95 H Pulse Oximetry Intake & Output 06/09/18 06/10/18 06/10/18 18:59 06:59 18:59 Other: Date of Last Bowel Movement 06/09/18 Result Diagrams: 06/09/18 19:24 06/09/18 19:24 Objective Remarks: GENERAL: Well-nourished, well-developed patient. CARDIOVASCULAR: Regular rate and rhythm without murmurs, gallops, or rubs. RESPIRATORY: Breath sounds equal bilaterally. No accessory muscle use. ABDOMEN/GI: Abdomen soft, non-tender. Fundus: Firm, non-tender at umbilicus. GENITOURINARY: Light to moderate bleeding. EXTREMITIES: No cyanosis or edema, non-tender, without signs of DVT. Medications and IVs: Active Medications Acetaminophen (Tylenol) 650 mg PO Q4H PRN PRN Reason: PAIN SCALE 1 TO 2 Al Hydroxide/Mg Hydroxide (Milk Of Magnesia Liq) 30 ml PO Q12H PRN PRN Reason: Mild Constipation Amoxicillin (Amoxil) 250 mg PO BID [facility] Stop: 06/14/18 08:59 Last Admin: 06/10/18 09:02 Dose: 250 mg Benzocaine (Americaine 20% Top [place]) 1 spray TOPICAL Q4H PRN PRN Reason: For Perineum Discomfort Last Admin: 06/10/18 00:00 Dose: 1 spray Bisacodyl (Dulcolax Supp) 10 mg RECTAL DAILY PRN PRN Reason: SEVERE CONSITIPATION Calcium Gluconate (Calcium Gluconate Inj) 1 gm IV.PUSH PRN PRN PRN Reason: Magnesium toxicity Ferrous Sulfate (Ferosul) 325 mg PO BID [facility] Last Admin: 06/10/18 09:02 Dose: 325 mg Hydralazine HCl (Apresoline Inj) 20 mg IV.PUSH Q4H PRN PRN Reason: SBP>160, DBP>90 Magnesium Sulfate (Magnesium Sulfate/Water 40 Gm/1000 Ml Premix) 40 gm in 1, 000 mls @ 50 mls/hr IV.CONT Q24H [facility] Last Admin: 06/08/18 20:00 Dose: 2 gm/hr, 50 mls/hr Ibuprofen (Motrin) 800 mg PO Q8H PRN PRN Reason: For Cramping Last Admin: 06/10/18 04:55 Dose: 800 mg Labetalol HCl (Trandate Inj) 10 mg IV.PUSH Q4H PRN PRN Reason: SBP>160, DBP>90 Lactulose (Lactulose Liq) 30 ml PO DAILY PRN PRN Reason: SEVERE CONSITIPATION Levetiracetam (Keppra) 500 mg PO BID [facility] Last Admin: 06/10/18 09:02 Dose: 500 mg Lorazepam (Ativan Inj) 2 mg IV.PUSH Q1M PRN PRN Reason: SEIZURES Naloxone HCl (Narcan Inj) 0.1 mg IV.PUSH Q2M PRN PRN Reason: for opiate reversal Ondansetron HCl (Zofran Inj) 4 mg IV.PUSH Q6H PRN PRN Reason: NAUSEA OR VOMITING Oxycodone/Acetaminophen (Percocet 5/325 Mg) 1 tab PO Q4H PRN PRN Reason: BREAKTHROUGH PAIN Last Admin: 06/10/18 09:11 Dose: 1 tab Vit/Calcium/Iron/Folic Ac (Stuartnatal Plus 3) 1 tab PO DAILY [facility] Last Admin: 06/10/18 09:02 Dose: 1 tab Senna/Docusate Sodium (Patti-Colace) 1 tab PO BID [facility] Last Admin: 06/10/18 09:02 Dose: 1 tab Sennosides (Senokot) 17.2 mg PO Q12H PRN PRN Reason: Moderate Constipation Sertraline HCl (Zoloft) 50 mg PO HS [facility] Last Admin: 06/09/18 20:24 Dose: 50 mg Sodium Chloride (Ns Flush) 2 ml IV.FLUSH BID [facility] Last Admin: 06/09/18 20:13 Dose: 2 ml Sodium Chloride (Ns Flush) 2 ml IV.FLUSH PRN PRN PRN Reason: FLUSH AFTER USING IV ACCESS Witch Lori/Glycerin (Tucks Pads) 1 applicatio RECTAL QID PRN PRN Reason: HEMORRHOIDS Last Admin: 06/09/18 23:59 Dose: 1 applicatio Zolpidem Tartrate (Ambien) 5 mg PO HS PRN PRN Reason: INSOMNIA Assessment and Plan - Diagnosis (1) Depression Code(s): F32.9 - Major depressive disorder, single episode, unspecified Status : Acute (2) Vaginal delivery Code(s): O80 - Encounter for full-term uncomplicated delivery Status: Acute (3) hemorrhage Code(s): O72.1 - Other immediate hemorrhage Status: Acute (4) DIC (disseminated intravascular coagulation) Code(s): D65 - Disseminated intravascular coagulation [defibrination syndrome] Status: Acute (5) Preeclampsia Code(s): O14.90 - Unspecified pre-eclampsia, unspecified trimester Status: Acute - Plan Patient is day 2 after vaginal delivery @. Is POD #1 for PPH. 1. --AF VSS --Continue routine care --Motrin and Percocet when necessary for pain --Encourage OOB --Pelvic rest for 6 weeks will need follow-up appointment at that time. --Contraception: unknown at this time 2. Preeclampsia - BP levels improving --Was on MgSO4 for elevated blood pressures after delivery. However, due to concern that this could worsen uterine atony, it was promptly discontinued. --Is on Keppra 500 mg BID for seizure prophylaxis and seizure precautions. Ativan PRN for acute seizure activity. --Control BP w/labetalol or hydralazine 3. S/p PPH - Given cytotec, hemabate, TXA, 2U PRBCs, and 1U FFP; she had curettage performed and a Bakri balloon was placed intra-op, which all contributed to resolution. - 2 PRBCs and 1 FFP given, Hgb increased from 6.2->9.9. Hb yesterday 8.5, repeat today pending. - Provide iron supplementation w/vitamin C - Monitor for recurrent bleeding 4. DIC- resolved - Patient spent one night in ICU - Stable - Continue to monitor 5. Depression - Con't home medication DW Dr. García and Yasmin Mensah
[2018-06-10 10:26] LABS: Hemoglobin 8.2 gm/dL (11.6-15.3); Mean Corpuscular HGB Conc 32.9 % (32.0-36.0); Mean Corpuscular Hemoglobin 28.4 pg (27.0-34.0); Mean Corpuscular Volume 86.2 fL (80.0-100.0); Mean Platelet Volume 8.5 fL (7.0-11.0); Platelet Count 125 th/mm3 (150-450); Red Cell Distribution Width 15.5 % (11.6-17.2)
[2018-06-10 10:45] LABS: Anion Gap 9 meq/L (5-15); Blood Urea Nitrogen 8 mg/dL (7-18); Calcium 7.9 mg/dL (8.5-10.1); Chloride 105 meq/L (98-107); Glomerular Filtration Rate Greater Than 89 mL/min (>89); Glucose,Random 86 mg/dL (74-106); Sodium 138 meq/L (136-145)
[2018-06-10 20:53] VITALS: RESP 18
[2018-06-10] MEDS: Sertraline 50 MG Tablet PO SCH (21:44)
[2018-06-11 08:26] VITALS: BP 139/78; PULSE 77
[2018-06-11 08:27] VITALS: TEMP 98
--- NOTE | 2018-06-11 09:28 | P.PNOB ---
Subjective Post day: 3 Interval history: Patient is a 22-year-old delivered at 39 weeks. Patient is day 3 after . She is status post hemorrhage, receiving 2 units of blood and 1 unit of fresh frozen plasma. Patient's pain is well-controlled. Patient reports eating and drinking without any nausea or vomiting. Patient reports chest pain that is also in her back with deep breathing and positioning. She states she had had this pain consistently before . The pain does not radiate to her jaw or arm. Patient has passed gas but no bowel movements. Patient is walking without lower extremity pain or shortness of breath. Patient reports desire for contraception and formula feeding. Objective Vital Signs/I&O: Vital Signs 06/10/18 13:00 06/10/18 17:00 06/10/18 20:00 Temperature 98.5 F 98.1 F 98.0 F Pulse Rate 80 74 77 Respiratory Rate 16 16 18 Blood Pressure 135/83 145/94 H 153/98 H 06/11/18 00:00 06/11/18 04:00 06/11/18 08:00 Temperature 97.8 F 98.3 F 98.0 F Pulse Rate 74 78 77 Respiratory Rate 18 18 18 Blood Pressure 140/88 116/74 139/78 Result Diagrams: 06/10/18 10:09 06/10/18 10:09 Objective Remarks: GENERAL: Well-nourished, well-developed patient. CARDIOVASCULAR: Regular rate and rhythm without murmurs, gallops, or rubs. No pain to palpation of chest wall. RESPIRATORY: Breath sounds equal bilaterally. No accessory muscle use. ABDOMEN/GI: Abdomen soft, non tender lower abdomen. Some tenderness of upper- abdomen Fundus: Firm, non-tender at umbilicus. GENITOURINARY: Light to moderate bleeding. EXTREMITIES: No cyanosis or edema, non-tender, without signs of DVT. Medications and IVs: Active Medications Acetaminophen (Tylenol) 650 mg PO Q4H PRN PRN Reason: PAIN SCALE 1 TO 2 Al Hydroxide/Mg Hydroxide (Milk Of Magnesia Liq) 30 ml PO Q12H PRN PRN Reason: Mild Constipation Benzocaine (Americaine 20% Top [place]) 1 spray TOPICAL Q4H PRN PRN Reason: For Perineum Discomfort Last Admin: 06/10/18 00:00 Dose: 1 spray Bisacodyl (Dulcolax Supp) 10 mg RECTAL DAILY PRN PRN Reason: SEVERE CONSITIPATION Calcium Gluconate (Calcium Gluconate Inj) 1 gm IV.PUSH PRN PRN PRN Reason: Magnesium toxicity Ferrous Sulfate (Ferosul) 325 mg PO BID [facility] Last Admin: 06/10/18 21:43 Dose: 325 mg Hydralazine HCl (Apresoline Inj) 20 mg IV.PUSH Q4H PRN PRN Reason: SBP>160, DBP>90 Magnesium Sulfate (Magnesium Sulfate/Water 40 Gm/1000 Ml Premix) 40 gm in 1, 000 mls @ 50 mls/hr IV.CONT Q24H [facility] Last Admin: 06/08/18 20:00 Dose: 2 gm/hr, 50 mls/hr Ibuprofen (Motrin) 800 mg PO Q8H PRN PRN Reason: For Cramping Last Admin: 06/11/18 02:36 Dose: 800 mg Labetalol HCl (Trandate Inj) 10 mg IV.PUSH Q4H PRN PRN Reason: SBP>160, DBP>90 Lactulose (Lactulose Liq) 30 ml PO DAILY PRN PRN Reason: SEVERE CONSITIPATION Levetiracetam (Keppra) 500 mg PO BID [facility] Last Admin: 06/10/18 21:43 Dose: 500 mg Lorazepam (Ativan Inj) 2 mg IV.PUSH Q1M PRN PRN Reason: SEIZURES Naloxone HCl (Narcan Inj) 0.1 mg IV.PUSH Q2M PRN PRN Reason: for opiate reversal Ondansetron HCl (Zofran Inj) 4 mg IV.PUSH Q6H PRN PRN Reason: NAUSEA OR VOMITING Oxycodone/Acetaminophen (Percocet 5/325 Mg) 1 tab PO Q4H PRN PRN Reason: BREAKTHROUGH PAIN Last Admin: 06/11/18 02:36 Dose: 1 tab Vit/Calcium/Iron/Folic Ac (Stuartnatal Plus 3) 1 tab PO DAILY [facility] Last Admin: 06/10/18 09:02 Dose: 1 tab Senna/Docusate Sodium (Patti-Colace) 1 tab PO BID [facility] Last Admin: 06/10/18 21:44 Dose: 1 tab Sennosides (Senokot) 17.2 mg PO Q12H PRN PRN Reason: Moderate Constipation Sertraline HCl (Zoloft) 50 mg PO HS [facility] Last Admin: 06/10/18 21:44 Dose: 50 mg Sodium Chloride (Ns Flush) 2 ml IV.FLUSH BID [facility] Last Admin: 06/10/18 23:38 Dose: 2 ml Sodium Chloride (Ns Flush) 2 ml IV.FLUSH PRN PRN PRN Reason: FLUSH AFTER USING IV ACCESS Witch Lori/Glycerin (Tucks Pads) 1 applicatio RECTAL QID PRN PRN Reason: HEMORRHOIDS Last Admin: 06/09/18 23:59 Dose: 1 applicatio Zolpidem Tartrate (Ambien) 5 mg PO HS PRN PRN Reason: INSOMNIA Assessment and Plan - Diagnosis (1) Vaginal delivery Code(s): O80 - Encounter for full-term uncomplicated delivery Status: Acute (2) hemorrhage Code(s): O72.1 - Other immediate hemorrhage Status: Acute (3) DIC (disseminated intravascular coagulation) Code(s): D65 - Disseminated intravascular coagulation [defibrination syndrome] Status: Acute (4) Preeclampsia Code(s): O14.90 - Unspecified pre-eclampsia, unspecified trimester Status: Acute (5) Depression Code(s): F32.9 - Major depressive disorder, single episode, unspecified Status : Acute - Plan Patient is day 3 after vaginal delivery and DIC post hemorrhage. 1. Vaginal delivery --AF VSS --Continue routine care --Motrin and Tylenol when necessary for pain --Encourage OOB --Pelvic rest for 6 weeks will need follow-up appointment at that time. --Contraception: tubal ligation 2. Preeclampsia - 139/78 this am --Was on MgSO4 for elevated blood pressures after delivery. However, due to concern that this could worsen uterine atony, it was promptly discontinued. --Was on Keppra 500 mg BID for seizure prophylaxis and seizure precautions. --Control BP w/labetalol or hydralazine --Encourage PCP follow up within 1-2 days to follow up on blood pressures. 3. S/p PPH - Given cytotec, hemabate, TXA, 2U PRBCs, and 1U FFP; she had curettage performed and a Bakri balloon was placed intra-op, which all contributed to resolution. - 2 PRBCs and 1 FFP given, Hgb increased from 6.2->9.9. Hb yesterday 8.5 and repeat 8.2. - Provide iron supplementation w/vitamin C - Monitor for recurrent bleeding 4. DIC- resolved - Patient spent one night in ICU - Stable - Continue to monitor 5. Depression - Con't home medication 6. UTI -was started on amoxicillin on 06/09; Discussed with Dr. Benjamín Curran that patient received Kefzol in OR. Discontinued amoxicillin on 06/11. Patient will be discharged today and encouraged to follow up with PCP in 1-[address] Roman.
[2018-06-11] MEDS: Senna/Docusate Sodium 8.6/50 MG Tablet PO SCH (09:36)
[2018-06-11] MEDS: Prenatal Vit/Ca/Iron/Folic Acid Tablet PO SCH (09:37)
[2018-06-11] MEDS: Ferrous Sulfate 325 MG Tablet PO SCH (09:37)
[2018-06-11] MEDS: levETIRAcetam 500 MG Tablet PO SCH (09:38)
--- NOTE | 2018-06-11 09:59 | P.OBGPN ---
MD received call from RN patient complaining of chest pain and shortness of breath Patient seen-O2 sats on room air 97%. No acute distress however when she speaks pauses in between to take a breath Lungs for the most part clear however the apices some rales noted right greater than left Cardiac S1-S2 some splitting noted over the mitral valve possibly from anemia Fundus is firm Lochia scant Bilateral lower extremities trace edema negative Homans Assessment /plan day 2 status post curettage secondary to hemorrhage with recovery from DIC Plan chest x-ray EKG echocardiogram CBC troponin We will sign out to oncoming physician
[2018-06-11] MEDS ORDERED: Famotidine 20 MG Tablet PO SCH (10:00)
[2018-06-11 10:36] LABS: Baso % (Auto) 0.2 % (0.0-2.0); Eos # (Auto) 0.1 th/mm3 (0.0-0.4); Eos % (Auto) 0.8 % (0.0-4.0); Hemoglobin 8.3 gm/dL (11.6-15.3); Lymph # (Auto) 0.8 th/mm3 (1.0-4.8); Lymph % (Auto) 10.3 % (9.0-44.0); Mean Corpuscular HGB Conc 33.3 % (32.0-36.0); Mean Corpuscular Hemoglobin 28.8 pg (27.0-34.0); Mean Corpuscular Volume 86.6 fL (80.0-100.0); Mean Platelet Volume 8.3 fL (7.0-11.0); Mono # (Auto) 0.7 th/mm3 (0.0-0.9); Mono % (Auto) 8.9 % (0.0-8.0); Neut # (Auto) 6.1 th/mm3 (1.8-7.7); Neut % (Auto) 79.8 % (16.0-70.0); Platelet Count 142 th/mm3 (150-450); Red Blood Count 2.88 mil/mm3 (4.00-5.30); Red Cell Distribution Width 15.7 % (11.6-17.2); White Blood Count 7.7 th/mm3 (4.0-11.0)
--- NOTE | 2018-06-11 11:27 | XR ---
EXAM DATE: 06/11/2018 11:20 AM EST AGE/SEX: 22 years / Female INDICATIONS: . Chest pain. CLINICAL DATA: This is the patient's initial encounter. Patient reports that signs and symptoms have been present for 1 day and indicates a pain score of 7/10. MEDICAL/SURGICAL HISTORY: None. None. COMPARISON: [facility] [place], CHEST PA & LAT, 10/02/2016. . FINDINGS: AP and lateral views of the chest demonstrate the lungs to be symmetrically aerated without evidence of mass, infiltrate or effusion. The cardiomediastinal contours are unremarkable. Osseous structure s are intact. CONCLUSION: Negative for acute process Electronically signed by: Sam Hernandez MD Board Certified Radiologist 06/11/2018 11:25 AM EST
--- NOTE | 2018-06-11 11:37 | ECHRPT ---
Indication: CHEST PAIN CONCLUSIONS The left ventricular systolic function is normal with an estimated ejection fraction in the range of 60-65%. [id number] mitral valve regurgitation. Trace aortic valve regurgitation. There is trace to mild tricuspid valve regurgitation. There is estimated mild pulmonary hypertension present (range 40-50 mmHg). Trivial pulmonary valve regurgitation. BP: / HR: Rhythm: Sinus MEASUREMENTS (Male / Female) Normal Values Technical Quality:Fair 2D ECHO LV Diastolic Diameter PLAX 5.1 cm 4.2 - 5.9 / 3.9 - 5.3 cm LV Systolic Diameter PLAX 3.3 cm IVS Diastolic Thickness 0.7 cm 0.6 - 1.0 / 0.6 - 0.9 cm LVPW Diastolic Thickness 0.7 cm 0.6 - 1.0 / 0.6 - 0.9 cm LV Relative Wall Thickness 0.3 RV Internal Dim ED PLAX 1.8 cm LVOT Diameter 1.8 cm Aortic Root Diameter 2.4 cm LA Systolic Diameter LX 3.4 cm 3.0 - 4.0 / 2.7 - 3.8 cm M-MODE AV Cusp Separation MM 1.8 cm DOPPLER AV Peak Velocity 142.0 cm/s AV Peak Gradient 8.1 mmHg AV Mean Gradient 4.0 mmHg AV Velocity Time Integral 27.7 cm LVOT Peak Velocity 90.2 cm/s LVOT Peak Gradient 3.3 mmHg LVOT Velocity Time Integral 18.1 cm AV Area Cont Eq vti 1.7 cm AV Area Cont Eq pk 1.6 cm Mitral E Point Velocity 83.4 cm/s Mitral A Point Velocity 56.8 cm/s Mitral E to A Ratio 1.5 LV E' Lateral Velocity 15.1 cm/s Mitral E to LV E' Lateral Ratio 5.5 LV E' Septal Velocity 9.1 cm/s Mitral E to LV E' Septal Ratio 9.2 TR Peak Velocity 305.0 cm/s TR Peak Gradient 37.2 mmHg Right Atrial Pressure 10.0 mmHg Pulmonary Artery Systolic Pressu 47.2 mmHg Right Ventricular Systolic Press 47.2 mmHg PV Peak Velocity 58.7 cm/s PV Peak Gradient 1.4 mmHg FINDINGS LEFT VENTRICLE Normal left ventricular size. Wall thickness is normal. The left ventricular systolic function is normal with an estimated ejection fraction in the range of 60-65%. RIGHT VENTRICLE Normal right ventricular size and systolic function. LEFT ATRIUM The left atrial size is normal. RIGHT ATRIUM The right atrial size is normal. ATRIAL SEPTUM No atrial level shunt is demonstrated by color flow Doppler interrogation. AORTA The aortic root and proximal ascending aorta are normal in size on limited imaging. MITRAL VALVE Structurally normal mitral valve. [id number] mitral valve regurgitation. No mitral valve stenosis. AORTIC VALVE Trileaflet aortic valve. Trace aortic valve regurgitation. No aortic valve stenosis. TRICUSPID VALVE Structurally normal tricuspid valve. There is trace to mild tricuspid valve regurgitation. The estimated pulmonary arterial pressure is 47.2 mmHg. There is estimated mild pulmonary hypertension present (range 40-50 mmHg). PULMONARY VALVE Trivial pulmonary valve regurgitation. VESSELS The inferior vena cava is normal in size. PERICARDIUM No pericardial effusion. Rishi Hummel DO (Electronically Signed) Final Date:11 June 2018 11:36
--- NOTE | 2018-06-11 12:45 | ECG ---
Date Performed: 06/11/2018 Time Performed: 09:57:45 PTAGE: 22 years EKG: Sinus rhythm NORMAL ECG EKG HAS NORMALIZED WHEN COMPARED TO PRIOR TRACING PREVIOUS TRACING : 03/28/2018 12.20 DOCTOR: Adam Burleson Interpretating Date/Time 06/11/2018 12:43:43
--- NOTE | 2018-06-11 12:52 | P.OBGPN ---
All testing normal- EKG, Echo, CXR, Troponin, CBC shows stable anemia. Spoke to pt. Patient speaking normally- no pausing to take a breath. Lungs sound clear at this time. Pt states she is not having chest pain. Still with some SOB but she feels it is from a med she takes. Discussed with pt re evaluating her in a few hours and making decision at that time regarding discharge. She agrees.
== END 2018-06-11 17:27 | disposition home or self-care (01) | DRG 768 ==
LOC: H2E 08:28 → H1EA 16:55 → H2E 19:54 → N03 06-09 03:33 → H1EA 06-09 12:16
PROVIDERS: ADMIT Obstetrics & Gynecology; ATTEND Obstetrics & Gynecology
CPT/HCPCS: 36415; 36430; 59025; 71020; 71046; 76816; 76819; 80048; 80053; 80307; 81001; 82180; 82570; 82803; 82805; 83735; 84155; 84157; 84484; 84550; 85025; 85027; 85384; 85610; 85730; 86850; 86900; 86901; 86920; 86927; 88305; 93005; 93308; 94150; 99284; C9503; G0481; G0483; J0330; J0690; J1953; J2370; J2405; J2590; J2704; J3010; J3475; J7120; P9016; P9017